=== PATIENT | female | born 1935 | race Caucasian/White ===

== ENCOUNTER 2016-08-06 18:32 | Emergency (ER) | payer MEDICARE, BC ==
[2016-08-06 18:42] VITALS: BP 167/77
[2016-08-06] MEDS ORDERED: Sodium Chloride 0.9% 10 ML Syringe FLUSH PRN ×2 (19:57→19:59)
[2016-08-06] MEDS ORDERED: Iopamidol 612 MG/ML 150 ML Bottle IVPUSH ONE (19:59)
--- NOTE | 2016-08-06 20:06 | EDM.PDOC ---
ED HPI GENERAL MEDICAL PROBLEM - General Chief Complaint: Gastrointestinal Problem Stated Complaint: CONSTIPATION Time Seen by Provider: 08/06/16 19:35 Source of Information: Reports: Patient History Limitations: Reports: No Limitations - History of Present Illness INITIAL COMMENTS - FREE TEXT/NARRATIVE: Patient is an 81-year-old female who presents to the ED complaining of right sided abdominal pain that radiates to her right middle back. Patient states she feels constipated. She's noted increased tenderness to palpation to these areas. She has a history of bowel obstructions with similar symptoms. She has had a poor appetite. Last BM was 2 days ago described as being semi-hard with no blood present. She has been passing gas and notes abdomen is gurgling. Pain has been an ongoing issue the past month. She was prescribed hydrocodone and has been taking intermittently with some relief. patient is concerned that there is something going on within her colon due to the history of colon cancer requiring bowel resection approximately 5 years ago. patient denies any fever/ chills, night sweats, chest pain, shortness of breath, nausea/vomiting, painful urination, excessive weight loss, or any additional complaints. Past medical history:colon cancer, arthritis, chronic back pain Past surgical history: Appendectomy, colostomy, bowel resection, abdominal hernia repair, hysterectomy current medications hydrocodone Onset: Unknown/Unsure (2 days ago approximately) Duration: Constant, Waxing/Waning Location: Reports: Abdomen (right upper lobe) Quality: Reports: Ache, Sharp, Stabbing, Other (crampy) Severity: Moderate Improves with: Reports: None Worsens with: Reports: Other (palpation) Associated Symptoms: Reports: Loss of Appetite. Denies: Chest Pain, Nausea/ Vomiting, Shortness of Breath Treatments [employer]: Reports: Other (see below) (see history of present illness) Right Abdominal Pain Score (Numeric/FACES): 8 - Related Data Allergies Allergy/AdvReac Type Severity Reaction Status Date / Time aspirin Allergy Rash Verified 08/06/16 18:42 codeine Allergy Cannot Verified 08/06/16 18:42 Remember monosodium glutamate Allergy Rash Verified 08/06/16 18:42 penicillin V Allergy Rash Verified 08/06/16 18:42 morphine AdvReac Hypotension Verified 08/06/16 18:42 sulfacetamide AdvReac Nausea Verified 08/06/16 18:42 Home Meds: Home Meds Hydrocodone/Acetaminophen [Hydrocodon-Acetaminophen 5-325] 1 tab PO Q4HR PRN [History] Nitrofurantoin Monohyd/M-Cryst [Macrobid 100 mg Capsule] 100 mg PO BID #10 capsule 08/06/16 [Rx] Past Medical History Musculoskeletal History: Reports: Arthritis, Back Pain, Chronic - Past Surgical History GI Surgical History: Reports: Appendectomy, Colonoscopy, Colostomy, Hernia, Abdominal Female Surgical History: Reports: Hysterectomy Social & Family History - Family History Family Medical History: Noncontributory - Tobacco Use Smoking Status *Q: Never Smoker - Caffeine Use Caffeine Use: Reports: None - Recreational Drug Use Recreational Drug Use: No - Living Situation & Occupation Living situation: Reports: Occupation: Retired ED ROS GENERAL - Review of Systems Review Of Systems: See Below Constitutional: Reports: Decreased Appetite. Denies: Fever, Chills Respiratory: Reports: No Symptoms Cardiovascular: Reports: No Symptoms GI/Abdominal: Reports: Abdominal Pain, Constipation, Decreased Appetite, Distension, Flatus. Denies: Black Stool, Bloody Stool, Diarrhea, Hematemesis, Melena, Nausea, Vomiting : Reports: No Symptoms Musculoskeletal: Reports: Back Pain (low back bilaterally) Skin: Reports: No Symptoms Neurological: Denies: Dizziness ED EXAM, GI/ABD - Physical Exam Exam: See Below Exam Limited By: No Limitations General Appearance: Alert, WD/WN, No Apparent Distress Ears: Hearing Grossly Normal Nose: Normal Inspection Throat/Mouth: Normal Voice, No Airway Compromise Neck: Normal Inspection, Supple Respiratory/Chest: No Respiratory Distress, Lungs Clear, Normal Breath Sounds, No Accessory Muscle Use, Chest Non-Tender Cardiovascular: Normal Peripheral Pulses, Regular Rate, Rhythm GI/Abdominal: Normal Bowel Sounds, Soft, No Organomegaly, No Distention, Tenderness (Rightright upper and lower quadrant. Multiple scars to the abdomen from previous surgeries. She also has pain in the suprapubic region.) Back Exam: Normal Inspection. No: CVA Tenderness (L), CVA Tenderness (R) Neurological: Alert, Oriented, Normal Cognition, No Motor/Sensory Deficits Psychiatric: Normal Affect, Normal Mood Skin Exam: Warm, Dry, Intact, Normal Color Course - Vital Signs Last Recorded V/S: Last Vital Signs Temp 98.7 F 08/06/16 18:38 Pulse 89 08/06/16 18:38 Resp 18 08/06/16 18:38 BP 167/77 H 08/06/16 18:38 Pulse Ox 97 08/06/16 18:38 - Orders/Labs/Meds Orders: Active Orders 24 hr Category Date Time Status Peripheral IV Care [RC] . DIRECTED Care 08/06/16 19:57 Active Abdomen Pelvis w Cont [CT] Stat Exams 08/06/16 19:57 Taken CULTURE URINE [RM] Stat Lab 08/06/16 22:20 Received Sodium Chloride 0.9% [Normal Saline] 1,000 ml Med 08/06/16 23:15 Active IV ASDIRECTED Sodium Chloride 0.9% [Saline Flush] Med 08/06/16 19:57 Active 10 ml FLUSH ASDIRECTED PRN Sodium Chloride 0.9% [Saline Flush] Med 08/06/16 19:59 Active 10 ml FLUSH ONETIME PRN Peripheral IV Insertion Adult [OM.PC] Stat Oth 08/06/16 19:57 Ordered Medication Orders Sodium Chloride (Normal Saline) 1,000 mls @ 75 mls/hr IV ASDIRECTED DENISA Last Admin: 08/06/16 23:26 Dose: 75 mls/hr Sodium Chloride (Saline Flush) 10 ml FLUSH ASDIRECTED PRN PRN Reason: Keep Vein Open Last Admin: 08/06/16 20:14 Dose: 10 ml Sodium Chloride (Saline Flush) 10 ml FLUSH ONETIME PRN PRN Reason: IV FLUSH Last Admin: 08/06/16 21:34 Dose: 10 ml Labs: Laboratory Tests 08/06/16 08/06/16 08/06/16 Range/Units 20:10 20:10 22:20 WBC 6.17 (3.98-10.04) K/mm3 RBC 4.40 (3.98-5.22) M/mm3 Hgb 13.4 (11.2-15.7) gm/L Hct 40.4 (34.1-44.9) % MCV 91.8 (79.4-94.8) fl MCH 30.5 (25.6-32.2) pg MCHC 33.2 (32.2-35.5) g/dl RDW Std Deviation 44.9 (36.4-46.3) fL Plt Count 316 (182-369) K/mm3 MPV 9.1 L (9.4-12.3) fl Neut % (Auto) 57.6 (34.0-71.1) % Lymph % (Auto) 30.6 (19.3-51.7) % Parker % (Auto) 9.2 (4.7-12.5) % Eos % (Auto) 1.8 (0.7-5.8) Baso % (Auto) 0.6 (0.1-1.2) % Neut # (Auto) 3.55 (1.56-6.13) K/mm3 Lymph # (Auto) 1.89 (1.18-3.74) K/mm3 Parker # (Auto) 0.57 H (0.24-0.36) K/mm3 Eos # (Auto) 0.11 (0.04-0.36) K/mm3 Baso # (Auto) 0.04 (0.01-0.08) K/mm3 Sodium 139 (136-145) mEq/L Potassium 4.2 (3.5-5.1) mEq/L Chloride 103 (98-107) mEq/L Carbon Dioxide 27 (21-32) mEq/L Anion Gap 13.2 (5-15) BUN 11 (7-18) mg/dL Creatinine 0.7 (0.55-1.02) mg/dL Est Cr Clr Drug Dosing 52.58 mL/min Estimated GFR (MDRD) > 60 (>60) mL/min BUN/Creatinine Ratio 15.7 (14-18) Glucose 118 H (83-115) mg/dL Calcium 9.7 (8.5-10.1) mg/dL Total Bilirubin 0.8 (0.2-1.0) mg/dL AST 29 (15-37) U/L ALT 31 (14-59) U/L Alkaline Phosphatase 145 H (46-116) U/L C-Reactive Protein 1.7 H* (<1.0) mg/dL Total Protein 7.6 (6.4-8.2) g/dl Albumin 3.9 (3.4-5.0) g/dl Globulin 3.7 gm/dL Albumin/Globulin Ratio 1.1 (1-2) Lipase 116 (73-393) U/L Urine Color Light yellow (Yellow) Urine Appearance Clear (Clear) Urine pH 7.0 (5.0-8.0) Ur Specific Bayard 1.015 (1.005-1.030) Urine Protein Negative (Negative) Urine Glucose (UA) Negative (Negative) Urine Ketones Negative (Negative) Urine Occult Blood Trace-intact H (Negative) Urine Nitrite Negative (Negative) Urine Bilirubin Negative (Negative) Urine Urobilinogen 0.2 (0.2-1.0) Ur Leukocyte Esterase 1+ H (Negative) Urine RBC 5-10 H (0-5) /hpf Urine WBC 20-30 H (0-5) /hpf Urine WBC Clumps Few (NOT SEEN) /hpf Ur Epithelial Cells Not Reportable Ur Squamous Epith Cells 5-10 H (0-5) /hpf Urine Bacteria Few (FEW) /hpf Urine Mucus Not seen (FEW) /hpf Meds: Medications Generic Name Dose Route Start Last Admin Trade Name Freq PRN Reason Stop Dose Admin Sodium Chloride 1,000 mls @ 75 mls/hr 08/06/16 23:15 08/06/16 23:26 Normal Saline IV 75 mls/hr ASDIRECTED DENISA Administration Sodium Chloride 10 ml 08/06/16 19:57 08/06/16 20:14 Saline Flush FLUSH 10 ml ASDIRECTED PRN Administration Keep Vein Open Sodium Chloride 10 ml 08/06/16 19:59 08/06/16 21:34 Saline Flush FLUSH 10 ml ONETIME PRN Administration IV FLUSH Discontinued Medications Generic Name Dose Route Start Last Admin Trade Name Christian PRN Reason Stop Dose Admin Hydromorphone HCl 0.5 mg 08/06/16 22:41 08/06/16 22:48 Dilaudid IVPUSH 08/06/16 22:42 0.5 mg ONETIME ONE Administration Iopamidol 150 ml 08/06/16 19:59 08/06/16 21:33 Isovue-300 (61%) IVPUSH 08/06/16 20:00 80 ml ONETIME ONE Administration Nitrofurantoin Macrocrystals 100 mg 08/06/16 23:02 08/06/16 23:18 Macrobid PO 08/06/16 23:03 100 mg ONETIME ONE Administration - Re-Assessments/Exams Free Text/Narrative Re-Assessment/Exam: 08/06/16 19:59 Patient has a history of 5 abdominal surgeries with colon resection. Complains of right sided abdominal discomfort with increased distention and no bowel movement for 2 days. She's concerned that she may have an obstruction present. The resection of the colon was secondary to cancer. We' ll obtain a peripheral IV with normal saline 75 mL per hour. Initial labs and studies include: CBC, C14, CRP, Lipase, UA, CT abdomen/pelvis with oral and IV contrast. Labs reviewed: CBC and chem 14 were essentially normal. ALK was elevated at 145 , CRP 1.7, and lipase 116. UA did reveal occult blood trace, leukocyte esterase 1+, rbc's 5-10, WBCs 20-30, squamous epithelial cells 5-10. Urine culture was obtained. Order Macrobid [address] of the abdomen and pelvis impression: 7 cm soft tissue mass involving the anterior aspect of the right iliac wing extending from the anterior superior iliac spine down to just above the acetabulum. There is bony destruction. This could be in metastasis disease or a primary bone lesion. 2 cm enhancing left renal mass suspicious for renal cell carcinoma. Stable and unchanged appearance to an umbilical hernia. Should results of labs and CT study with patient. She is in excruciating amount of pain. Pain is located to low back. Ordered Dilaudid 0.5 mg IVP. She requested transfer to [facility]. 08/06/16 23:[address] Sánchez, does not believe patient requires admission to the hospital for workup of lesions found on CT. Suggests patient see PCP this coming Tuesday to schedule appt with IR for biopsy. 08/06/16 23:21 Reassessment, pain has improved. She agrees with plan. Will discharge patient home with instructions. 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 Pain you're currently experiencing is most likely associated with the bone cancer. We'll have you see your primary care provider on Tuesday to schedule an appointment with interventional radiology 2 obtain biopsy of the masses. We'll have the PCP arrange appointment with oncologist for further evaluation and determine treatment course. Continue taking hydrocodone as prescribed. Thus beware this medication can cause constipation and suggest increasing your water intake, fiber intake, and also starting MiraLax one capful every day. In addition UA results were concerning for infection. Urine culture was obtained. Will start you on Macrobid 100 mg twice a day for 5 days. If antibiotic changes are required you will be notified. Return back to the ED for any new or worsening symptoms. - My Orders Last 24 Hours: My Active Orders 08/06/16 19:57 Peripheral IV Care [RC] . DIRECTED Abdomen Pelvis w Cont [CT] Stat Sodium Chloride 0.9% [Saline Flush] 10 ml FLUSH ASDIRECTED PRN Peripheral IV Insertion Adult [OM.PC] Stat 08/06/16 19:59 Sodium Chloride 0.9% [Saline Flush] 10 ml FLUSH ONETIME PRN 08/06/16 22:20 CULTURE URINE [RM] Stat 08/06/16 23:15 Sodium Chloride 0.9% [Normal Saline] 1,000 ml IV ASDIRECTED - Assessment/Plan Last 24 Hours: My Active Orders 08/06/16 19:57 Peripheral IV Care [RC] . DIRECTED Abdomen Pelvis w Cont [CT] Stat Sodium Chloride 0.9% [Saline Flush] 10 ml FLUSH ASDIRECTED PRN Peripheral IV Insertion Adult [OM.PC] Stat 08/06/16 19:59 Sodium Chloride 0.9% [Saline Flush] 10 ml FLUSH ONETIME PRN 08/06/16 22:20 CULTURE URINE [RM] Stat 08/06/16 23:15 Sodium Chloride 0.9% [Normal Saline] 1,000 ml IV ASDIRECTED
[2016-08-06] MEDS ORDERED: Diatrizoate Meglumine/Diatrizoate Sodium 37% 120 ML Bottle PO ONE (21:34)
[2016-08-06] MEDS ORDERED: HYDROmorphone 0.5 MG/0.5 ML Syringe IVPUSH ONE (22:41)
[2016-08-06] MEDS ORDERED: Nitrofurantoin Monohydrate/Macrocrystalline 100 MG Cap PO ONE (23:02)
[2016-08-06] MEDS ORDERED: Sodium Chloride 0.9% 1,000 ML IV SCH (23:15)
--- NOTE | 2016-08-07 12:56 | CT ---
CT abdomen and pelvis Technique: Multiple axial sections were obtained from above the dome of the diaphragm inferiorly through the pubic symphysis. Delayed images were also obtained through the pelvis. Comparison: Previous abdominal and pelvic exam dated 10/15/14. Findings: Visualized lung bases show mild scarring. Liver shows no focal parenchymal abnormality. Moderately large hiatal hernia is seen. Spleen appears within normal limits. Adrenal glands show no nodule. Gallbladder shows no calcified gallstones. Small enhancing renal mass is noted on the left side in area of previous resected tumor compatible with recurrence. This measures about 1.9 cm and is a significant interval change from prior CT exam. Cyst is noted within the left kidney which appears to be stable from previous exam and currently measures about 1.5 cm. Kidneys are otherwise unremarkable. Pancreas is within normal limits. Aorta shows atherosclerotic change without aneurysmal dilatation. No retroperitoneal adenopathy is seen. Anterior abdominal wall hernia is noted containing nondilated loops of small bowel which is a stable finding. Destructive lesion is identified within the anterior right iliac wing showing bony destruction and enhancement. This abnormality measures approximately 7.2 cm in greatest dimension which is craniocaudal. This finding is not identified on prior CT exam and is felt compatible with metastatic lesion likely from patient's previous renal cell carcinoma. No additional bony metastatic lesions are seen. Mild scoliosis and degenerative change is seen within the spine. Impression: 1. 7.2 cm lytic lesion within the anterior right iliac wing with surrounding soft tissue extension. This lytic lesion shows enhancement. This is not seen on prior CT exam and is compatible with metastatic lesion likely from patient's previous renal cell carcinoma. 2. 1.9 cm enhancing mass within the left kidney. This is in the area of previous tumor resection and is felt compatible with recurrence. 3. Other findings as noted above which are stable. Diagnostic code #9 I agree with preliminary report issued by [employer] ([facility] report finalized on 08/06/16, 11:14 PM Central Time)
== END 2016-08-06 23:59 | disposition home or self-care (01) ==
LOC: JD.ED 18:32
DX: N39.0 Urinary tract infection, site not specified (principal); N28.89 Other specified disorders of kidney and ureter; C41.4 Malignant neoplasm of pelvic bones, sacrum and coccyx; Z90.49 Acquired absence of other specified parts of digestive tract; Z98.890 Other specified postprocedural states; Z90.710 Acquired absence of both cervix and uterus; Z88.0 Allergy status to penicillin; Z88.2 Allergy status to sulfonamides; Z88.5 Allergy status to narcotic agent; Z88.8 Allergy status to other drugs, medicaments and biological substances
CPT/HCPCS: 36415; 74177; 80053; 81001; 83690; 85025; 86140; 87086; 96374; 99284; A9270; J1170; J7040; J7050; Q9967; Q9963

== ENCOUNTER 2016-08-30 23:07 | Emergency (ER) | payer MEDICARE, BC ==
[2016-08-30 23:18] VITALS: BP 168/75
[2016-08-31] MEDS ORDERED: HYDROmorphone 1 MG/ML Syringe IVPUSH ONE ×2 (00:03→02:33)
[2016-08-31] MEDS ORDERED: Ondansetron 4 MG/2 ML SDV IVPUSH ONE ×2 (00:03→02:53)
[2016-08-31] MEDS ORDERED: Sodium Chloride 0.9% 1,000 ML IV SCH (00:15)
--- NOTE | 2016-08-31 02:15 | EDM.PDOC ---
ED HPI GENERAL MEDICAL PROBLEM - General Chief Complaint: Abdominal Pain Stated Complaint: SHORTNESS OF BREATH/PAIN IN BACK/SWELLING Time Seen by Provider: 08/30/16 23:46 Source of Information: Reports: Patient, Family (), Old Records, RN Notes Reviewed History Limitations: Reports: No Limitations - History of Present Illness INITIAL COMMENTS - FREE TEXT/NARRATIVE: Medical records indicate that the patient was seen in this ED 08/06/2016 for what she thought was constipation. 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 The patient subsequently underwent a left kidney biopsy and right hip biopsy at [facility] around 13:00 today. She was discharged home around 16:30, already at that time complaining of pain to her left flank and right hip. She states that the pain became significantly worse around 22:00 tonight. She states that the pain in her left flank is worse than the pain in her right hip. She believes that her abdomen is swelling. She had some nausea and emesis here in the ED. The patient was previously prescribed Youngwood, but took only one tablet around 22: 00 tonight. The patient's PCP is Dr. Randolph Abdomen Pain Score (Numeric/FACES): 10 - Related Data Allergies Allergy/AdvReac Type Severity Reaction Status Date / Time aspirin Allergy Rash Verified 08/06/16 18:42 codeine Allergy Cannot Verified 08/06/16 18:42 Remember monosodium glutamate Allergy Rash Verified 08/06/16 18:42 penicillin V Allergy Rash Verified 08/06/16 18:42 morphine AdvReac Hypotension Verified 08/06/16 18:42 sulfacetamide AdvReac Nausea Verified 08/06/16 18:42 Home Meds: Home Meds Hydrocodone/Acetaminophen [Hydrocodon-Acetaminophen 5-325] 1 tab PO Q4HR PRN [History] Past Medical History Musculoskeletal History: Reports: Arthritis, Back Pain, Chronic Oncologic (Cancer) History: Reports: Colon - Past Surgical History GI Surgical History: Reports: Appendectomy (with complications), Colon ( Hemicolectomy) Female Surgical History: Reports: Section (x 1), Hysterectomy, Salpingo-Oophorectomy Social & Family History - Family History Family Medical History: Noncontributory - Tobacco Use Smoking Status *Q: Former Smoker Years of Tobacco use: 21 Packs/Tins Daily: 3 Month Tobacco Last Used: Quit 1969 - Caffeine Use Caffeine Use: Reports: None - Alcohol Use Alcohol Use History: No - Recreational Drug Use Recreational Drug Use: No - Living Situation & Occupation Living situation: Reports: , with Spouse Occupation: Retired ED ROS GENERAL - Review of Systems Review Of Systems: See Below Constitutional: Reports: No Symptoms HEENT: Reports: No Symptoms Respiratory: Reports: No Symptoms Cardiovascular: Reports: No Symptoms Endocrine: Reports: No Symptoms GI/Abdominal: Reports: No Symptoms : Reports: No Symptoms Musculoskeletal: Reports: Back Pain (chronic) Skin: Reports: No Symptoms Neurological: Reports: No Symptoms Psychiatric: Reports: No Symptoms Hematologic/Lymphatic: Reports: No Symptoms Immunologic: Reports: No Symptoms ED EXAM, GENERAL - Physical Exam Exam: See Below Exam Limited By: No Limitations General Appearance: Alert, WD/WN, No Apparent Distress Eye Exam: Bilateral Eye: Normal Inspection Ears: Normal External Exam, Hearing Grossly Normal Nose: Normal Inspection, No Blood Throat/Mouth: Normal Inspection, Normal Lips, Normal Voice, No Airway Compromise Head: Atraumatic, Normocephalic Neck: Normal Inspection, Full Range of Motion Respiratory/Chest: No Respiratory Distress, Lungs Clear, Normal Breath Sounds, No Accessory Muscle Use Cardiovascular: Normal Peripheral Pulses, Regular Rate, Rhythm, No Gallop, No JVD, No Murmur, No Rub Peripheral Pulses: 4+: Radial (L), Radial (R) GI/Abdominal: Normal Bowel Sounds, Soft, Non-Tender, No Organomegaly, No Distention, No Abnormal Bruit, No Mass, Hernia (Umbilical) (Female) Exam: Deferred Rectal (Female) Exam: Deferred Back Exam: Normal Inspection, Full Range of Motion, Other (Puncture wound to the left flank, covered by dressing, noted. No significant associated swelling, erythema, or ecchymosis.) Extremities: Normal Inspection, Normal Range of Motion, No Pedal Edema, Normal Capillary Refill, Other (Puncture wound to the right groin, covered by dressing , noted. No associated swelling, erythema, or ecchymosis.) Neurological: Alert, Oriented, Normal Cognition, No Motor/Sensory Deficits Psychiatric: Normal Affect Skin Exam: Warm, Dry, Intact, Normal Color, No Rash Lymphatic: No Adenopathy Course - Vital Signs Last Recorded V/S: Last Vital Signs Temp 36.3 C 08/30/16 23:14 Pulse 57 L 08/30/16 23:14 Resp 14 08/30/16 23:14 BP 168/75 H 08/30/16 23:14 Pulse Ox 98 08/30/16 23:14 - Orders/Labs/Meds Orders: Active Orders 24 hr Category Date Time Status Abdomen Pelvis w Cont [CT] Stat Exams 08/31/16 00:02 Taken Sodium Chloride 0.9% [Normal Saline] 1,000 ml Med 08/31/16 00:15 Active IV ASDIRECTED Medication Orders Sodium Chloride (Normal Saline) 1,000 mls @ 150 mls/hr IV ASDIRECTED DENISA Last Admin: 08/31/16 00:16 Dose: 150 mls/hr Labs: Laboratory Tests 08/30/16 08/30/16 08/31/16 Range/Units 23:25 23:25 00:05 WBC 7.20 (3.98-10.04) K/mm3 RBC 4.40 (3.98-5.22) M/mm3 Hgb 13.3 (11.2-15.7) gm/L Hct 39.9 (34.1-44.9) % MCV 90.7 (79.4-94.8) fl MCH 30.2 (25.6-32.2) pg MCHC 33.3 (32.2-35.5) g/dl RDW Std Deviation 43.3 (36.4-46.3) fL Plt Count 229 (182-369) K/mm3 MPV 9.5 (9.4-12.3) fl Neutrophils % (Manual) 63 H (40-60) % Band Neutrophils % 0 (0-10) % Lymphocytes % (Manual) 20 (20-40) % Atypical Lymphs % 3 % Monocytes % (Manual) 11 H (2-10) % Eosinophils % (Manual) 2 (0.7-5.8) % Basophils % (Manual) 1 (0.1-1.2) Platelet Estimate Adequate Plt Morphology Comment Normal RBC Morph Comment Normal Sodium 137 (136-145) mEq/L Potassium 3.9 (3.5-5.1) mEq/L Chloride 103 (98-107) mEq/L Carbon Dioxide 25 (21-32) mEq/L Anion Gap 12.9 (5-15) BUN 13 (7-18) mg/dL Creatinine 0.9 (0.55-1.02) mg/dL Est Cr Clr Drug Dosing 40.90 mL/min Estimated GFR (MDRD) 60 (>60) mL/min BUN/Creatinine Ratio 14.4 (14-18) Glucose 176 H (83-115) mg/dL Calcium 9.4 (8.5-10.1) mg/dL Total Bilirubin 0.9 (0.2-1.0) mg/dL AST 22 (15-37) U/L ALT 27 (14-59) U/L Alkaline Phosphatase 123 H (46-116) U/L Total Protein 7.3 (6.4-8.2) g/dl Albumin 3.7 (3.4-5.0) g/dl Globulin 3.6 gm/dL Albumin/Globulin Ratio 1.0 (1-2) Urine Color Yellow (Yellow) Urine Appearance Clear (Clear) Urine pH 7.0 (5.0-8.0) Ur Specific [place] 1.020 (1.005-1.030) Urine Protein Trace H (Negative) Urine Glucose (UA) Negative (Negative) Urine Ketones 1+ H (Negative) Urine Occult Blood 3+ H (Negative) Urine Nitrite Negative (Negative) Urine Bilirubin Negative (Negative) Urine Urobilinogen 1.0 (0.2-1.0) Ur Leukocyte Esterase Negative (Negative) Urine RBC 50-75 H (0-5) /hpf Urine WBC 0-5 (0-5) /hpf Ur Epithelial Cells Not seen (0-5) /hpf Urine Bacteria Few (FEW) /hpf Coarse Granular Casts 0-5 (0-5) /hpf Urine Mucus Not seen (FEW) /hpf Meds: Medications Generic Name Dose Route Start Last Admin Trade Name Freq PRN Reason Stop Dose Admin Sodium Chloride 1,000 mls @ 150 mls/hr 08/31/16 00:15 08/31/16 00:16 Normal Saline IV 150 mls/hr ASDIRECTED DENISA Administration Discontinued Medications Generic Name Dose Route Start Last Admin Trade Name Freq PRN Reason Stop Dose Admin Hydromorphone HCl 1 mg 08/31/16 00:03 08/31/16 00:17 Dilaudid IVPUSH 08/31/16 00:04 1 mg ONETIME ONE Administration Ondansetron HCl 4 mg 06/27/17 00:03 08/31/16 00:16 Zofran IVPUSH 08/31/16 00:04 4 mg ONETIME ONE Administration - Radiology Interpretation Free Text/Narrative:: CT of the abdomen and pelvis with oral and IV contrast is read by [facility] as: 1. Known bony destructive lesion involving the right iliac wing. 2. Known left renal mass. 3. Mild left-sided hydronephrosis and hydroureter. Small amount of high density in the distal aspect of the left ureter could represent a small amount of blood in the ureter which is resulting in the hydronephrosis. 4. Umbilical hernia 5. Hiatal hernia - Re-Assessments/Exams Free Text/Narrative Re-Assessment/Exam: 08/31/16 02:33 Test results discussed with the patient. Christian's workup shows modestly elevated blood glucose of 176, and the CT scan demonstrating recurrence of a left kidney tumor and what appears to be a metastatic lesion to the right hip. I 'm recommending to the patient that she take her previously prescribed Youngwood on a regular basis, and not wait until her pain is unmanageable. I do not see an indication for hospitalization. I'm recommending that she follow-up with Dr. Randolph tomorrow. Departure - Departure Time of Disposition: 02:34 Disposition: Home, Self-Care 01 Condition: Fair Clinical Impression: Left flank pain, Right hip pain, Hyperglycemia - Discharge Information Referrals: Yaw Randolph MD [Primary Care Provider] - Forms: ED Department Discharge Additional Instructions: You were seen in the emergency room for left flank pain and right hip pain after undergoing biopsies to those areas earlier today. Workup in the ER included blood work, a urinalysis, and a CT scan of your abdomen and pelvis. Your blood work found your blood glucose to be modestly elevated at 176. The CT scan of your abdomen and pelvis found some swelling of your left kidney due to post biopsy bleeding. The CT scan redemonstrated a left kidney tumor and a right hip tumor. 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 Please take your previously prescribed Youngwood (hydrocodone with acetaminophen) 1- 2 tablets every 4-6 hours, on a regular basis. Do not wait until your pain becomes unbearable before taking the medicine. Please follow-up with Dr. Agustín in the morning, to address your elevated blood sugar as well as your pain management. If any other problems, please do not hesitate to return to the ER. - My Orders Last 24 Hours: My Active Orders 08/31/16 00:02 Abdomen Pelvis w Cont [CT] Stat 08/31/16 00:15 Sodium Chloride 0.9% [Normal Saline] 1,000 ml IV ASDIRECTED - Assessment/Plan Last 24 Hours: My Active Orders 08/31/16 00:02 Abdomen Pelvis w Cont [CT] Stat 08/31/16 00:15 Sodium Chloride 0.9% [Normal Saline] 1,000 ml IV ASDIRECTED
--- NOTE | 2016-08-31 07:17 | CT ---
CT abdomen and pelvis Technique: Multiple axial sections were obtained from above the dome of the diaphragm inferiorly through the pubic symphysis. Intravenous and oral contrast was utilized. Delayed images were also obtained through the abdomen and pelvis. Comparison: Previous CT abdomen and pelvis exam of 08/06/16. Findings: Visualized lung bases show mild fibrosis. Liver shows no focal abnormality. Gallbladder shows no calcified gallstones. Spleen appears within normal limits. Adrenal glands show no nodule. Moderately large hiatal hernia is seen. Aorta shows atherosclerotic change without aneurysm. Abdominal wall hernia is seen containing loops of nondilated small bowel. Hernia defect measures approximately 5 cm. No pelvic mass or adenopathy is seen. Anastomotic sutures appear to be present at the rectosigmoid junction. Left renal mass is identified. This measures about 2.1 cm in size is felt to be stable when allowing for differences in measurement technique. There is an enhancing nodule within the left renal pelvis. This appears to be within the collecting system and possibly represents small amount of tumor that is invading the renal pelvis. This enhancing nodule measures 9 mm. This appears to be without change from prior study but better seen due to differences in enhancement. There is a mildly prominent left ureter which is an interval change from prior exam. Minimal increased density is noted within the distal left ureter possibly due to blood causing some obstruction as an etiology of the mild ureteral prominence. No right sided kidney abnormalities are seen. Bone window settings show a stable metastatic lesion within the right iliac wing which currently measures about 5.3 cm in size (in AP projection). This measures about 5.1 cm in size (in AP projection) in similar measurement plane on prior study. Craniocaudal measurement is approximately 7.3 cm which is fairly stable when compared to prior exam. Scattered degenerative change is seen within the spine. Impression: 1. Left renal mass stable in size measuring about 2.1 cm. Enhancing soft tissue nodule is seen within the adjacent collecting system of the left kidney possibly due to invasion of the collecting system. This enhancing nodule measures about 9 mm and is felt to be stable from prior exam. 2. Mild left-sided hydronephrosis as an interval change from prior exam. Slight increased density within the distal left ureter. This increased density may represent a small amount of blood from recent biopsy causing mild hydronephrosis. 3. 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 This has minimally changed in configuration from prior exam. 4. Hiatal hernia and abdominal hernia. Diagnostic code #9 Agree with preliminary report issued by [facility] ([facility] report dictated on 08/31/16, 3:13 AM Central Time)
== END 2016-08-31 03:25 | disposition home or self-care (01) ==
LOC: JD.ED 23:07
DX: R10.9 Unspecified abdominal pain (principal); M25.551 Pain in right hip; R73.9 Hyperglycemia, unspecified; Z79.82 Long term (current) use of aspirin; Z88.5 Allergy status to narcotic agent; Z88.0 Allergy status to penicillin; Z88.2 Allergy status to sulfonamides; Z90.49 Acquired absence of other specified parts of digestive tract; Z90.710 Acquired absence of both cervix and uterus; Z87.891 Personal history of nicotine dependence
CPT/HCPCS: 36415; 74177; 80053; 81001; 85025; 96361; 96374; 96375; 96376; 99284; J1170; J2405; J7040

== ENCOUNTER 2017-09-18 00:51 | Inpatient (IN) | payer MEDICARE, BC ==
--- NOTE | 2017-09-18 01:14 | EDM.PDOC ---
ED HPI GENERAL MEDICAL PROBLEM - General Chief Complaint: Head Injury Stated Complaint: [facility] Time Seen by Provider: 09/18/17 00:58 Source of Information: Reports: Patient History Limitations: Reports: No Limitations - History of Present Illness INITIAL COMMENTS - FREE TEXT/NARRATIVE: This is an 82-year-old female brought in by the ambulance. Apparently she fell 2 today though the patient herself does not remember. She has a laceration to the bridge of her nose but she is coherent and talking though she does remember today's events very well. Apparently she has a history of bone cancer in the past. She does complain of coccyx tenderness and some mild right anterior pelvis tenderness. She also has some bruising and abrasions of the right ribs however she does not complain of rib tenderness. Her significant other though it is not her states that she fell out of bed twice today. She also has not been eating or drinking anything much over the last week. Apparently she has been expressing to Silvio that she wants to . She does have bone cancer in her right pelvis and right hip. According to Silvio the cancer doctor stated there was nothing more they could do for her. The patient is a DNR/DNI. Nose Pain Score (Numeric/FACES): 8 - Related Data Allergies Allergy/AdvReac Type Severity Reaction Status Date / Time aspirin Allergy Rash Verified 08/06/16 18:42 codeine Allergy Cannot Verified 08/06/16 18:42 Remember monosodium glutamate Allergy Rash Verified 08/06/16 18:42 penicillin V Allergy Rash Verified 08/06/16 18:42 morphine AdvReac Hypotension Verified 08/06/16 18:42 sulfacetamide AdvReac Nausea Verified 08/06/16 18:42 Home Meds: Home Meds . [No Known Home Meds] 09/18/17 [History] Past Medical History Musculoskeletal History: Reports: Arthritis, Back Pain, Chronic Oncologic (Cancer) History: Reports: Colon - Past Surgical History GI Surgical History: Reports: Appendectomy (with complications), Colon ( Hemicolectomy) Female Surgical History: Reports: Section (x 1), Hysterectomy, Salpingo-Oophorectomy Social & Family History - Family History Family Medical History: Noncontributory - Caffeine Use Caffeine Use: Reports: None - Living Situation & Occupation Living situation: Reports: , with Spouse Occupation: Retired ED ROS GENERAL - Review of Systems Review Of Systems: See Below Constitutional: Reports: Weakness, Fatigue. Denies: Fever, Chills HEENT: Reports: Other (As per history of present illness) Respiratory: Denies: Shortness of Breath, Cough Cardiovascular: Denies: Chest Pain Endocrine: Reports: No Symptoms GI/Abdominal: Denies: Abdominal Pain, Diarrhea, Nausea, Vomiting : Denies: Dysuria Musculoskeletal: Reports: Other (As per history of present illness) Skin: Reports: Other (As per history of present illness) Neurological: Reports: Other (Poor memory but she seems to be alert) Psychiatric: Reports: Depression Hematologic/Lymphatic: Reports: No Symptoms ED EXAM, HEAD INJURY - Physical Exam Exam: See Below Exam Limited By: No Limitations General Appearance: Alert, No Apparent Distress, Thin Head: Other (Patient has a bruise on her forehead and a laceration on the bridge of the nose that is prima closed, she appears to developing some mild bruising around the bridge of the nose, she denies any jaw or tooth pain) Eyes: Bilateral Eye: Normal Inspection Ears: Normal External Exam, Normal Canal, Normal TMs Nose: Normal Inspection Throat/Mouth: No Airway Compromise, Other (Lips are pale, mouth is dry, she is able to verbalize) Neck: Other (She has generalized soreness of her neck though she is moving it and rotating it side to side) Respiratory: No Respiratory Distress, Lungs Clear, Normal Breath Sounds, Other ( Right ribs are sore and bruised but there is no crepitus there is no marked pain on palpation of either side ribs) Cardiovascular: Regular Rate, Rhythm, No Murmur GI/Abdominal Exam: Soft, Non-Tender Back Exam: Decreased Range of Motion, Other (There is no significant thoracic or lumbar tenderness other than the very lower lumbar area, the sacrum has a bruise noted in the upper buttocks region) Extremities: Other (Patient is rather cachectic, she moves all 4 extremities without difficulty she does complain of a stinging pain in her right pelvis area and hip) Neurologic: Alert, Other (The patient recognizes Silvio and I believe she understands she is in the hospital but she is not oriented to time) Skin: Other (Poor skin turgor) - Shea Coma Score Best Eye Response ([place]): (4) Open Spontaneously Best Verbal Response (Shea): (5) Oriented Best Motor Response (Shea): (6) Obeys Commands Shea Total: 15 Course - Vital Signs Last Recorded V/S: Last Vital Signs Temp 98.5 F 09/18/17 00:59 Pulse 76 09/18/17 00:59 Resp 18 09/18/17 00:59 BP 167/55 H 09/18/17 00:59 Pulse Ox 98 09/18/17 00:59 - Orders/Labs/Meds Orders: Active Orders 24 hr Category Date Time Status Admission Status [Patient Status] [ADT] Routine ADT 09/18/17 03:38 Active Cervical Spine wo Cont [CT] Stat Exams 09/18/17 01:03 Ordered Head wo Cont [CT] Stat Exams 09/18/17 01:03 Ordered Lumbar Spine 2 or 3V [CR] Stat Exams 09/18/17 01:04 Taken Max Facial Sinus wo Cont [CT] Stat Exams 09/18/17 01:05 Taken Pelvis 1V or 2V [CR] Stat Exams 09/18/17 01:07 Taken Sacrum Coccyx Min 2V [CR] Stat Exams 09/18/17 01:04 Taken Sodium Chloride 0.9% [Normal Saline] 1,000 ml Med 09/18/17 01:15 Active IV ASDIRECTED Medication Orders Sodium Chloride (Normal Saline) 1,000 mls @ 250 mls/hr IV ASDIRECTED DENISA Last Admin: 09/18/17 01:23 Dose: 250 mls/hr Labs: Laboratory Tests 09/18/17 09/18/17 09/18/17 Range/Units 01:19 01:19 01:19 WBC 5.08 (3.98-10.04) K/mm3 RBC 3.23 L (3.98-5.22) M/mm3 Hgb 10.1 L (11.2-15.7) gm/L Hct 31.2 L (34.1-44.9) % MCV 96.6 H (79.4-94.8) fl MCH 31.3 (25.6-32.2) pg MCHC 32.4 (32.2-35.5) g/dl RDW Std Deviation 48.7 H (36.4-46.3) fL Plt Count 344 (182-369) K/mm3 MPV 8.6 L (9.4-12.3) fl Neut % (Auto) 76.8 H (34.0-71.1) % Lymph % (Auto) 11.2 L (19.3-51.7) % [place] % (Auto) 11.4 (4.7-12.5) % Eos % (Auto) 0.4 L (0.7-5.8) Baso % (Auto) 0.2 (0.1-1.2) % Neut # (Auto) 3.90 (1.56-6.13) K/mm3 Lymph # (Auto) 0.57 L (1.18-3.74) K/mm3 [place] # (Auto) 0.58 H (0.24-0.36) K/mm3 Eos # (Auto) 0.02 L (0.04-0.36) K/mm3 Baso # (Auto) 0.01 (0.01-0.08) K/mm3 Sodium 140 (136-145) mEq/L Potassium 2.7 L (3.5-5.1) mEq/L Chloride 100 (98-107) mEq/L Carbon Dioxide 33 H (21-32) mEq/L Anion Gap 9.7 (5-15) BUN 31 H (7-18) mg/dL Creatinine 1.1 H (0.55-1.02) mg/dL Est Cr Clr Drug Dosing TNP Estimated GFR (MDRD) 47 (>60) mL/min BUN/Creatinine Ratio 28.2 H (14-18) Glucose 145 H (83-115) mg/dL Calcium 16.0 H* (8.5-10.1) mg/dL Magnesium 2.1 (1.8-2.4) mg/dl Total Bilirubin 1.1 H (0.2-1.0) mg/dL AST 19 (15-37) U/L ALT 17 (14-59) U/L Alkaline Phosphatase 146 H (46-116) U/L Total Protein 7.8 (6.4-8.2) g/dl Albumin 3.3 L (3.4-5.0) g/dl Globulin 4.5 gm/dL Albumin/Globulin Ratio 0.7 L (1-2) Urine Color (Yellow) Urine Appearance (Clear) Urine pH (5.0-8.0) Ur Specific [place] (1.005-1.030) Urine Protein (Negative) Urine Glucose (UA) (Negative) Urine Ketones (Negative) Urine Occult Blood (Negative) Urine Nitrite (Negative) Urine Bilirubin (Negative) Urine Urobilinogen (0.2-1.0) Ur Leukocyte Esterase (Negative) Urine RBC (0-5) /hpf Urine WBC (0-5) /hpf Ur Epithelial Cells (0-5) /hpf Urine Bacteria (FEW) /hpf Hyaline Casts (0-5) /lpf Waxy Casts (0-5) /lpf Urine Mucus (FEW) /hpf 09/18/17 Range/Units 01:28 WBC (3.98-10.04) K/mm3 RBC (3.98-5.22) M/mm3 Hgb (11.2-15.7) gm/L Hct (34.1-44.9) % MCV (79.4-94.8) fl MCH (25.6-32.2) pg MCHC (32.2-35.5) g/dl RDW Std Deviation (36.4-46.3) fL Plt Count (182-369) K/mm3 MPV (9.4-12.3) fl Neut % (Auto) (34.0-71.1) % Lymph % (Auto) (19.3-51.7) % [place] % (Auto) (4.7-12.5) % Eos % (Auto) (0.7-5.8) Baso % (Auto) (0.1-1.2) % Neut # (Auto) (1.56-6.13) K/mm3 Lymph # (Auto) (1.18-3.74) K/mm3 [place] # (Auto) (0.24-0.36) K/mm3 Eos # (Auto) (0.04-0.36) K/mm3 Baso # (Auto) (0.01-0.08) K/mm3 Sodium (136-145) mEq/L Potassium (3.5-5.1) mEq/L Chloride (98-107) mEq/L Carbon Dioxide (21-32) mEq/L Anion Gap (5-15) BUN (7-18) mg/dL Creatinine (0.55-1.02) mg/dL Est Cr Clr Drug Dosing Estimated GFR (MDRD) (>60) mL/min BUN/Creatinine Ratio (14-18) Glucose (83-115) mg/dL Calcium (8.5-10.1) mg/dL Magnesium (1.8-2.4) mg/dl Total Bilirubin (0.2-1.0) mg/dL AST (15-37) U/L ALT (14-59) U/L Alkaline Phosphatase (46-116) U/L Total Protein (6.4-8.2) g/dl Albumin (3.4-5.0) g/dl Globulin gm/dL Albumin/Globulin Ratio (1-2) Urine Color Yellow (Yellow) Urine Appearance Clear (Clear) Urine pH 6.5 (5.0-8.0) Ur Specific [place] 1.020 (1.005-1.030) Urine Protein Trace H (Negative) Urine Glucose (UA) Negative (Negative) Urine Ketones Negative (Negative) Urine Occult Blood 2+ H (Negative) Urine Nitrite Negative (Negative) Urine Bilirubin Negative (Negative) Urine Urobilinogen 1.0 (0.2-1.0) Ur Leukocyte Esterase Negative (Negative) Urine RBC 10-20 H (0-5) /hpf Urine WBC 0-5 (0-5) /hpf Ur Epithelial Cells 0-5 (0-5) /hpf Urine Bacteria Rare (FEW) /hpf Hyaline Casts 0-5 (0-5) /lpf Waxy Casts 0-5 (0-5) /lpf Urine Mucus Not seen (FEW) /hpf Meds: Medications Generic Name Dose Route Start Last Admin Trade Name Freq PRN Reason Stop Dose Admin Sodium Chloride 1,000 mls @ 250 mls/hr 09/18/17 01:15 09/18/17 01:23 Normal Saline IV 250 mls/hr ASDIRECTED DENISA Administration Discontinued Medications Generic Name Dose Route Start Last Admin Trade Name Freq PRN Reason Stop Dose Admin Hydromorphone HCl 0.5 mg 09/18/17 02:32 09/18/17 02:38 Dilaudid IVPUSH 09/18/17 02:33 0.5 mg ONETIME ONE Administration - Radiology Interpretation Free Text/Narrative:: X-ray of the lumbar spine does not show any acute fractures, she does have an L3 compression fracture but it appears to be old X-ray of the sacrum coccyx is does not reveal any acute fractures that I can see that she does have degenerative changes noted X-ray of the pelvis shows a destructive process in the right ilium and there are some cavities in the bones suggestive of bone cancer CT scan of the cervical spine reveals some degenerative changes and arthritis but no acute fractures CT scan of the head reveals no acute intracranial process CT scan of the facial bones 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 There are no other acute findings noted - Re-Assessments/Exams Free Text/Narrative Re-Assessment/Exam: 09/18/17 03:11 Spoke to the patient and her significant other regarding the x-ray and CT scan results. I also spoke with him regarding the lab findings and the need for us to watch her and try to get the calcium down with hydration and other modalities. 09/18/17 03:42 I spoke to the patient regarding the various findings and her labs and her dehydration indicating we need to put her in the hospital to straighten this out and she is more than happy to be in the hospital. Departure - Departure Time of Disposition: 03:42 Disposition: Refer to Observation Condition: Poor Clinical Impression: Dehydration, Hypercalcemia of malignancy, Hypokalemia, Anorexia Facial laceration Qualifiers: Encounter type: initial encounter Qualified Code(s): S01.81XA - Laceration without foreign body of other part of head, initial encounter Rib contusion Qualifiers: Encounter type: initial encounter Laterality: right Qualified Code(s): S20.211A - Contusion of right front wall of thorax, initial encounter Coccyx contusion Qualifiers: Encounter type: initial encounter Qualified Code(s): S30.0XXA - Contusion of lower back and pelvis, initial encounter Bone cancer Qualifiers: Malignant neoplasm of bone location: pelvic bone Qualified Code(s): 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 Moreno and he will admit the patient for further evaluation and treatment. ED Communication - ED Communication Date/Time Date: 09/18/17 Time Called: 03:40 - Discussed Case With (1) Discussed Case With (1): Admitting Provider Person/s Notified (1): Saran Moreno (He will admit the patient for further evaluation and treatment) - My Orders Last 24 Hours: My Active Orders 09/18/17 01:03 Cervical Spine wo Cont [CT] Stat Head wo Cont [CT] Stat 09/18/17 01:04 Lumbar Spine 2 or 3V [CR] Stat Sacrum Coccyx Min 2V [CR] Stat 09/18/17 01:05 Max Facial Sinus wo Cont [CT] Stat 09/18/17 01:07 Pelvis 1V or 2V [CR] Stat 09/18/17 01:15 Sodium Chloride 0.9% [Normal Saline] 1,000 ml IV ASDIRECTED 09/18/17 03:38 Admission Status [Patient Status] [ADT] Routine - Assessment/Plan Last 24 Hours: My Active Orders 09/18/17 01:03 Cervical Spine wo Cont [CT] Stat Head wo Cont [CT] Stat 09/18/17 01:04 Lumbar Spine 2 or 3V [CR] Stat Sacrum Coccyx Min 2V [CR] Stat 09/18/17 01:05 Max Facial Sinus wo Cont [CT] Stat 09/18/17 01:07 Pelvis 1V or 2V [CR] Stat 09/18/17 01:15 Sodium Chloride 0.9% [Normal Saline] 1,000 ml IV ASDIRECTED 09/18/17 03:38 Admission Status [Patient Status] [ADT] Routine
[2017-09-18] MEDS ORDERED: Sodium Chloride 0.9% 1,000 ML IV SCH (01:15)
[2017-09-18] MEDS ORDERED: HYDROmorphone 0.5 MG/0.5 ML SYRINGE IVPUSH ONE (02:32)
[2017-09-18] MEDS: Sodium Chloride 0.9% with KCl 1,000 ML IV SCH ×5 (03:59→20:21)
[2017-09-18] MEDS ORDERED: Sodium Chloride 0.9% with KCl 1,000 ML IV SCH (04:00)
[2017-09-18] MEDS ORDERED: HYDROmorphone 2 MG Tab PO PRN (05:09)
--- NOTE | 2017-09-18 06:54 | PCM.HP ---
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 She reports a lesion on her nose bridge but could not tell me how she got it. She also reports to having butt pain and right hip tenderness but both have now improved. Patient is able to provide some pertinent information but overall she is a poor historian. However according to Silvio, erna and AIDE, she has been very weak, dehydrated, and not been eating or drinking over the past week. About that period of time, she had expressed to him about wanting to . Patient lost her for good several years now but has a son in [place], [place] who she has not seen or talk to in a very long time. She currently lives with Silvio who appears to be her volunteer helper and or partial respiratory care faculty. Her initial workup in the emergency department shows a CBC remarkable for RBC of 3.23, hemoglobin of 10.1, hematocrit of 31.2, MCH of 96.6, RDW of 40.7, MPV of 8.6, neutrophils of 76.8%, lymphocytes of 11.2% and eosinophils of 0.4%. Her chemistry is remarkable for potassium of 2.7, carbon dioxide of 33, BUN of 31, creatinine of 1.1, glucose of 145, calcium of 16, total bilirubin of 1.1, alkaline phosphatase of 146, and albumin of 3.3. Her UA is negative for UTI but suggestive of hematuria with 2+ protein and urine RBC of 11-20. Head CT scan report reads large bony destructive process involving the clivus extending into the sphenoid sinus. No evidence of acute infarct, or intracranial hemorrhage or mass. 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 No acute fracture is identified. CT scan of the cervical spine reads no acute fracture or dislocation, cervical spondylosis changes with loss of disc space height from C4-C7, bilateral facet arthropathy throughout the cervical spine. 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 She is DNR/DNI. Nose Pain Score (Numeric/FACES): 8 - Related Data Allergies/Adverse Reactions: Allergies Allergy/AdvReac Type Severity Reaction Status Date / Time aspirin Allergy Rash Verified 08/06/16 18:42 codeine Allergy Cannot Verified 08/06/16 18:42 Remember monosodium glutamate Allergy Rash Verified 08/06/16 18:42 penicillin V Allergy Rash Verified 08/06/16 18:42 morphine AdvReac Hypotension Verified 08/06/16 18:42 sulfacetamide AdvReac Nausea Verified 08/06/16 18:42 Home Medications: Home Meds . [No Known Home Meds] 09/18/17 [History] Past Medical History Musculoskeletal History: Reports: Arthritis, Back Pain, Chronic Oncologic (Cancer) History: Reports: Colon - Past Surgical History GI Surgical History: Reports: Appendectomy (with complications), Colon ( Hemicolectomy) Female Surgical History: Reports: Section (x 1), Hysterectomy, Salpingo-Oophorectomy Social & Family History - Family History Family Medical History: Noncontributory - Tobacco Use Smoking Status *Q: Never Smoker - Caffeine Use Caffeine Use: Reports: None - Living Situation & Occupation Living situation: Reports: , with Spouse Occupation: Retired H&P Review of Systems - Review of Systems: Review Of Systems: See Below General: Reports: Malaise, Weakness, Fatigue. Denies: Fever, Chills HEENT: Reports: No Symptoms Pulmonary: Reports: No Symptoms Cardiovascular: Reports: Dyspnea on Exertion. Denies: Chest Pain, Palpitations , Lightheadedness Gastrointestinal: Reports: Decreased Appetite, Nausea. Denies: Abdominal Pain, Vomiting Genitourinary: Reports: Frequency Musculoskeletal: Reports: Back Pain, Joint Pain, Other (hip pain) Skin: Reports: No Symptoms Psychiatric: Reports: Confusion, Depression. Denies: Anxiety, Agitation, Hallucinations Neurological: Reports: Difficulty Walking, Weakness, Gait Disturbance Hematologic/Lymphatic: Reports: No Symptoms Immunologic: Reports: No Symptoms Exam - Exam Exam: See Below - Vital Signs Vital Signs: Last Vital Signs Temp 37.2 C 09/18/17 04:35 Pulse 76 09/18/17 00:59 Resp 16 09/18/17 04:35 BP 127/92 H 09/18/17 04:35 Pulse Ox 98 09/18/17 00:59 Weight: 53.932 kg - Exam General: Alert, Cooperative, Other (emaciated). No: Oriented, Mild Distress HEENT: Conjunctiva Clear, EACs Clear, Hearing Intact, Nares Patent, Normal Nasal Septum, Pupils Equal, Pupils Reactive, Other (lesion/abrasion on nose bridge). No: Mucosa Moist & [place]: Supple, Trachea Midline Lungs: Clear to Auscultation, Normal Respiratory Effort Cardiovascular: Regular Rate, Regular Rhythm GI/Abdominal Exam: Normal Bowel Sounds, Soft, Non-Tender, No Organomegaly, No Distention, No Abnormal Bruit, No Mass (Female) Exam: Deferred Rectal (Female) Exam: Deferred Back Exam: Decreased Range of Motion Extremities: Normal Inspection, No Pedal Edema, Normal Capillary Refill, Limited Range of Motion Peripheral Pulses: 2+: Posterior Tibial (L), Posterior Tibial (R), Dorsalis Pedis (L), Dorsalis Pedis (R) Skin: Warm, Dry, Intact, Ecchymosis, Other (poor skin tugor) Neuro Extensive - Mental Status: Alert, Disorientation to Place, Disorientation to Time, Memory Loss-Remote Events, Slow Response to Commands. No: Normal Cognition, Memory Intact, Disorientation to Person Neuro Extensive - Motor, Sensory, Reflexes: CN II-XII Intact (very limited due to AMS), Abnormal Gait Psychiatric: Alert, Normal Affect, Normal Mood. No: Agitated - Patient Data Lab Results Last 24 hrs: Laboratory Results - last 24 hr 09/18/17 09/18/17 09/18/17 Range/Units 01:19 01:19 01:19 WBC 5.08 (3.98-10.04) K/mm3 RBC 3.23 L (3.98-5.22) M/mm3 Hgb 10.1 L (11.2-15.7) gm/L Hct 31.2 L (34.1-44.9) % MCV 96.6 H (79.4-94.8) fl MCH 31.3 (25.6-32.2) pg MCHC 32.4 (32.2-35.5) g/dl RDW Std Deviation 48.7 H (36.4-46.3) fL Plt Count 344 (182-369) K/mm3 MPV 8.6 L (9.4-12.3) fl Neut % (Auto) 76.8 H (34.0-71.1) % Lymph % (Auto) 11.2 L (19.3-51.7) % [place] % (Auto) 11.4 (4.7-12.5) % Eos % (Auto) 0.4 L (0.7-5.8) Baso % (Auto) 0.2 (0.1-1.2) % Neut # (Auto) 3.90 (1.56-6.13) K/mm3 Lymph # (Auto) 0.57 L (1.18-3.74) K/mm3 [place] # (Auto) 0.58 H (0.24-0.36) K/mm3 Eos # (Auto) 0.02 L (0.04-0.36) K/mm3 Baso # (Auto) 0.01 (0.01-0.08) K/mm3 Sodium 140 (136-145) mEq/L Potassium 2.7 L (3.5-5.1) mEq/L Chloride 100 (98-107) mEq/L Carbon Dioxide 33 H (21-32) mEq/L Anion Gap 9.7 (5-15) BUN 31 H (7-18) mg/dL Creatinine 1.1 H (0.55-1.02) mg/dL Est Cr Clr Drug Dosing TNP Estimated GFR (MDRD) 47 (>60) mL/min BUN/Creatinine Ratio 28.2 H (14-18) Glucose 145 H (83-115) mg/dL Calcium 16.0 H* (8.5-10.1) mg/dL Magnesium 2.1 (1.8-2.4) mg/dl Total Bilirubin 1.1 H (0.2-1.0) mg/dL AST 19 (15-37) U/L ALT 17 (14-59) U/L Alkaline Phosphatase 146 H (46-116) U/L Total Protein 7.8 (6.4-8.2) g/dl Albumin 3.3 L (3.4-5.0) g/dl Globulin 4.5 gm/dL Albumin/Globulin Ratio 0.7 L (1-2) Urine Color (Yellow) Urine Appearance (Clear) Urine pH (5.0-8.0) Ur Specific [place] (1.005-1.030) Urine Protein (Negative) Urine Glucose (UA) (Negative) Urine Ketones (Negative) Urine Occult Blood (Negative) Urine Nitrite (Negative) Urine Bilirubin (Negative) Urine Urobilinogen (0.2-1.0) Ur Leukocyte Esterase (Negative) Urine RBC (0-5) /hpf Urine WBC (0-5) /hpf Ur Epithelial Cells (0-5) /hpf Urine Bacteria (FEW) /hpf Hyaline Casts (0-5) /lpf Waxy Casts (0-5) /lpf Urine Mucus (FEW) /hpf 18 Range/Units 01:28 WBC (3.98-10.04) K/mm3 RBC (3.98-5.22) M/mm3 Hgb (11.2-15.7) gm/L Hct (34.1-44.9) % MCV (79.4-94.8) fl MCH (25.6-32.2) pg MCHC (32.2-35.5) g/dl RDW Std Deviation (36.4-46.3) fL Plt Count (182-369) K/mm3 MPV (9.4-12.3) fl Neut % (Auto) (34.0-71.1) % Lymph % (Auto) (19.3-51.7) % [place] % (Auto) (4.7-12.5) % Eos % (Auto) (0.7-5.8) Baso % (Auto) (0.1-1.2) % Neut # (Auto) (1.56-6.13) K/mm3 Lymph # (Auto) (1.18-3.74) K/mm3 [place] # (Auto) (0.24-0.36) K/mm3 Eos # (Auto) (0.04-0.36) K/mm3 Baso # (Auto) (0.01-0.08) K/mm3 Sodium (136-145) mEq/L Potassium (3.5-5.1) mEq/L Chloride (98-107) mEq/L Carbon Dioxide (21-32) mEq/L Anion Gap (5-15) BUN (7-18) mg/dL Creatinine (0.55-1.02) mg/dL Est Cr Clr Drug Dosing Estimated GFR (MDRD) (>60) mL/min BUN/Creatinine Ratio (14-18) Glucose (83-115) mg/dL Calcium (8.5-10.1) mg/dL Magnesium (1.8-2.4) mg/dl Total Bilirubin (0.2-1.0) mg/dL AST (15-37) U/L ALT (14-59) U/L Alkaline Phosphatase (46-116) U/L Total Protein (6.4-8.2) g/dl Albumin (3.4-5.0) g/dl Globulin gm/dL Albumin/Globulin Ratio (1-2) Urine Color Yellow (Yellow) Urine Appearance Clear (Clear) Urine pH 6.5 (5.0-8.0) Ur Specific [place] 1.020 (1.005-1.030) Urine Protein Trace H (Negative) Urine Glucose (UA) Negative (Negative) Urine Ketones Negative (Negative) Urine Occult Blood 2+ H (Negative) Urine Nitrite Negative (Negative) Urine Bilirubin Negative (Negative) Urine Urobilinogen 1.0 (0.2-1.0) Ur Leukocyte Esterase Negative (Negative) Urine RBC 10-20 H (0-5) /hpf Urine WBC 0-5 (0-5) /hpf Ur Epithelial Cells 0-5 (0-5) /hpf Urine Bacteria Rare (FEW) /hpf Hyaline Casts 0-5 (0-5) /lpf Waxy Casts 0-5 (0-5) /lpf Urine Mucus Not seen (FEW) /hpf Result Diagrams: 09/18/17 01:19 09/18/17 11:38 EKG INTERPRETATION EKG Date: 09/18/17 Time: 11:50 Rhythm: Other (Sinus Rhythm) Rate (Beats/Min): 62 QRS: LBBB Comparison: NA - No Prior EKG Problem List Initiated/Reviewed/Updated: Yes Orders Last 24hrs: Active Orders 24 hr Category Date Time Status Admission Status [Patient Status] [ADT] Routine ADT 09/18/17 03:38 Active Activity as Tolerated [RC] .Routine Care 09/18/17 05:09 Active Regular Diet [DIET] Diet 09/18/17 Breakfast Active Cervical Spine wo Cont [CT] Stat Exams 09/18/17 01:03 Taken Head wo Cont [CT] Stat Exams 09/18/17 01:03 Taken Lumbar Spine 2 or 3V [CR] Stat Exams 09/18/17 01:04 Taken Max Facial Sinus wo Cont [CT] Stat Exams 09/18/17 01:05 Taken Pelvis 1V or 2V [CR] Stat Exams 09/18/17 01:07 Taken Sacrum Coccyx Min 2V [CR] Stat Exams 09/18/17 01:04 Taken HYDROmorphone [Dilaudid] Med 09/18/17 05:09 Active 0.5 mg PO Q4H PRN Sodium Chloride 0.9% with KCl [Normal Saline with 40 Med 09/18/17 04:00 Active mEq KCl] 1,000 ml IV ASDIRECTED Code Status [Resuscitation Status] Routine Resus Stat 09/18/17 05:08 Ordered Medication Orders Hydromorphone HCl (Dilaudid) 0.5 mg PO Q4H PRN PRN Reason: Pain Potassium Chloride/Sodium Chloride (Normal Saline With 40 Meq Kcl) 1,000 mls @ 250 mls/hr IV ASDIRECTED DENISA Last Admin: 09/18/17 03:59 Dose: 250 mls/hr Assessment/Plan Comment:: Assessment/Plan: Acute: Hypercalcemia of Malignancy * Carries a hx/o renal cancer s/p resection and with recurrence * 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 * High turn over rate by inflammatory cells * She had gotten so far nothing but IV hydration * We do not carry Calcitonin and Biphosphonate in the hospital so we have to order them * At this point she really did not want treatment but I could not readily accept her decision since she is really confused (psychiatric overtones) * Spoke to the DPOA and would like conservative treatment * Continue IV hydration and will start her on loop diuretic so she can excrete some calcium * Calcitonin is too expensive (May cost her $8000) but opted for Zolendronic Acid * She would not benefit with steroids because her cancer is not lymphoma, sarcoid or granulomatous disease is nature * Ordered iPTH, 1,25 Vit D level and iCa level; no PTHrP since we know she has malignancy Renal Cancer 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 * Palliative care at this point * Pain medications as needed Severe Dehydration * Unable to care herself due to worsening cancer * She likely had fallen a few times at home * She has no hx/o heart failure so will continue somewhat aggressive intravenous hydration * Monitor output Generalized Weakness with Failure To Thrive * She has not been eating for the past 2 weeks * Her appetite is poor * She had fallen a few times and bust her nose * She very weak get up and even go to the bathroom * PT/OT consult * Dietary consult Weight Loss and Poor Appetite * 2/2 Above Malignancy * Dietary consult * Marinol 2.5 mg po TIDAC AMS/Metabolic Encephalopathy * 2/2 Hypercalcemia of Malignancy * Treat underlying cause * Ativan PRN for abortive seizure End of Life Care * She is DNR/DNI and wants to d * She will benefit with Hospice/Palliative care at this point * SW consult Chronic: Atherosclerotic calcification within the thoracic aorta Mild coronary artery disease Abdominal hernia 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 History of rectal cancer status post resection History of renal mass status post resection with previous recurrence History of mild left-sided hydronephrosis Moderate largely hiatal hernia Hx/o Rectal thickening status post surgical anastomosis Osteopenia status post DEXA scan 10/30/2014 Status post posterior laminectomy with central stenosis in L3-L4 and L4-L5 Plan: Admit to [facility] floor for end of life care Basic treatment only Resume Home Meds Aspiration and Fall Precautions Repeat labs later today PT/OT consult Hospice Consult SW/CM for d/c planning Code status: DNR/DNI Overall prognosis is grim
[2017-09-18] MEDS ORDERED: Sodium Chloride 0.9% 500 ML IV ONE (11:16)
[2017-09-18] MEDS ORDERED: Zolpidem 5 MG Tab PO PRN (11:26)
[2017-09-18] MEDS ORDERED: Polyethylene Glycol 3350 Powder 17 GM Packet PO PRN (11:26)
[2017-09-18] MEDS ORDERED: LORazepam 2 MG/ML SDV IVPUSH PRN (11:26)
[2017-09-18] MEDS ORDERED: HYDROmorphone 0.5 MG/0.5 ML SYRINGE IVPUSH PRN (11:26)
[2017-09-18] MEDS ORDERED: Albuterol/Ipratropium 3.0-0.5 MG/3 ML Neb Soln NEB PRN (11:26)
[2017-09-18] MEDS ORDERED: Acetaminophen 325 MG Tab PO PRN (11:26)
[2017-09-18] MEDS ORDERED: Promethazine 6.25 MG in Sodium Chloride 0.9% 50 ML IV PRN (11:26)
[2017-09-18] MEDS ORDERED: Metoprolol Tartrate 5 MG/5 ML SDV IVPUSH PRN (11:26)
[2017-09-18] MEDS ORDERED: oxyCODONE 5 MG Tab PO PRN (11:26)
[2017-09-18] MEDS ORDERED: hydrALAZINE 20 MG/ML SDV IVPUSH PRN (11:26)
[2017-09-18] MEDS ORDERED: Docusate Sodium 100 MG Cap PO PRN (11:26)
[2017-09-18] MEDS ORDERED: Bisacodyl 5 MG Tab PO PRN (11:26)
[2017-09-18] MEDS ORDERED: LORazepam 2 MG/ML SDV IV PRN (11:26)
[2017-09-18] MEDS ORDERED: Ondansetron 4 MG/2 ML SDV IV PRN (11:26)
[2017-09-18] MEDS ORDERED: Magnesium Oxide 400 MG Tab PO ONE (12:30)
[2017-09-18] MEDS: Potassium Chloride 20 MEQ Tab.ER PO SCH ×2 (13:02→16:30)
--- NOTE | 2017-09-18 13:30 | PCM.SN ---
- Free Text/Narrative Note: Spoke to her DPOA-Friend (Silvio) and discussed with him about her diagnosis, lab results, clinical status and treatment. I informed him, we do not have the medications [Calcitonin and Biphosphonate (Zolendronic Acid)] to treat her hypercalcemia readily available and those have to be ordered. I further informed him that her confusion and memory impairment is due to her considerably high level of calcium and that all I could offer her is hydration and possible loop diuretics but these regimen would not be enough to resolve her hypercalcemia. During my conversation with him, we addressed her code status. I offered Comfort Measures as an extra layer to her code status. Informed Silvio these would help her not suffer or in pain while she is processing of dying. Unfortunately, he declined and told me to keep her current code status as is.
[2017-09-18] MEDS ORDERED: Bumetanide 1 MG/4 ML MDV IVPUSH ONE (13:31)
[2017-09-18] MEDS: Dronabinol 2.5 MG Cap PO SCH (17:11)
[2017-09-18] MEDS ORDERED: Bumetanide 1 MG/4 ML MDV IVPUSH SCH (21:00)
[2017-09-18] MEDS: Bumetanide 1 MG/4 ML MDV IVPUSH SCH (21:06)
[2017-09-19] MEDS: Sodium Chloride 0.9% with KCl 1,000 ML IV SCH ×6 (00:17→21:04)
[2017-09-19] MEDS: Bumetanide 1 MG/4 ML MDV IVPUSH SCH ×2 (06:22→13:53)
[2017-09-19] MEDS ORDERED: Magnesium Oxide 400 MG Tab PO ONE (08:00)
[2017-09-19] MEDS ORDERED: Zoledronic Acid 4 MG in Sodium Chloride 0.9% 100 ML IV ONE (09:00)
[2017-09-19] MEDS: Dronabinol 2.5 MG Cap PO SCH ×3 (09:10→16:13)
--- NOTE | 2017-09-19 09:40 | PCM.PN ---
- General Info Date of Service: 09/19/17 Admission Dx/Problem (Free Text): Admission Diagnosis/Problem Admission Diagnosis/Problem Dehydration Subjective Update: Follow Up Functional Status: Reports: Pain Controlled, Urinating. Denies: Tolerating Diet , Ambulating - Review of Systems General: Reports: Fatigue, Malaise. Denies: Fever, Chills HEENT: Reports: No Symptoms Pulmonary: Denies: Shortness of Breath Cardiovascular: Denies: Chest Pain, Dyspnea on Exertion, Orthopnea, Lightheadedness Gastrointestinal: Reports: Decreased Appetite. Denies: Abdominal Pain, Nausea, Vomiting Genitourinary: Reports: No Symptoms Musculoskeletal: Reports: No Symptoms Skin: Denies: Cyanosis, Mottled, Pallor, Diaphoresis, Dryness, Rash Neurological: Reports: Confusion, Difficulty Walking, Weakness, Gait Disturbance. Denies: Headache Psychiatric: Denies: Depression, Anxiety, Agitation, Hallucinations Systems Review Comment:: No overnight or acute issues. She is about the same. No complaints and still has no appetite. Her Mg is level is 1.6. No CBC done this AM. - Patient Data Vitals - Most Recent: Last Vital Signs Temp 36.3 C 09/19/17 03:55 Pulse 66 09/19/17 03:55 Resp 14 09/19/17 03:55 BP 138/62 09/19/17 04:00 Pulse Ox 97 09/19/17 03:55 Weight - Most Recent: 53.66 kg I&O - Last 24 Hours: Intake & Output 09/18/17 09/19/17 09/19/17 22:59 06:59 14:59 Intake Total 1752 3207 Output Total 6198 0594 Balance -398 -718 Lab Results Last 24 Hours: Laboratory Results - last 24 hr 09/18/17 09/18/17 09/19/17 Range/Units 11:38 11:38 05:40 WBC 5.17 (3.98-10.04) K/mm3 RBC 3.17 L (3.98-5.22) M/mm3 Hgb 9.9 L (11.2-15.7) gm/L Hct 31.4 L (34.1-44.9) % MCV 99.1 H (79.4-94.8) fl MCH 31.2 (25.6-32.2) pg MCHC 31.5 L (32.2-35.5) g/dl RDW Std Deviation 51.5 H (36.4-46.3) fL Plt Count 299 (182-369) K/mm3 MPV 8.9 L (9.4-12.3) fl Neut % (Auto) 69.2 (34.0-71.1) % Lymph % (Auto) 15.5 L (19.3-51.7) % [place] % (Auto) 13.7 H (4.7-12.5) % Eos % (Auto) 1.0 (0.7-5.8) Baso % (Auto) 0.2 (0.1-1.2) % Neut # (Auto) 3.58 (1.56-6.13) K/mm3 Lymph # (Auto) 0.80 L (1.18-3.74) K/mm3 [place] # (Auto) 0.71 H (0.24-0.36) K/mm3 Eos # (Auto) 0.05 (0.04-0.36) K/mm3 Baso # (Auto) 0.01 (0.01-0.08) K/mm3 Sodium 145 (136-145) mEq/L Potassium 3.8 (3.5-5.1) mEq/L Chloride 109 H (98-107) mEq/L Carbon Dioxide 30 (21-32) mEq/L Anion Gap 9.8 (5-15) BUN 26 H (7-18) mg/dL Creatinine 1.0 (0.55-1.02) mg/dL Est Cr Clr Drug Dosing 35.65 mL/min Estimated GFR (MDRD) 53 (>60) mL/min BUN/Creatinine Ratio 26.0 H (14-18) Glucose 137 H (83-115) mg/dL Calcium 14.1 H* (8.5-10.1) mg/dL Magnesium 1.9 (1.8-2.4) mg/dl Total Bilirubin 0.8 (0.2-1.0) mg/dL AST 23 (15-37) U/L ALT 18 (14-59) U/L Alkaline Phosphatase 129 H (46-116) U/L C-Reactive Protein 13.0 H* (<1.0) mg/dL Total Protein 6.9 (6.4-8.2) g/dl Albumin 2.9 L (3.4-5.0) g/dl Globulin 4.0 gm/dL Albumin/Globulin Ratio 0.7 L (1-2) 09/19/17 Range/Units 05:40 WBC (3.98-10.04) K/mm3 RBC (3.98-5.22) M/mm3 Hgb (11.2-15.7) gm/L Hct (34.1-44.9) % MCV (79.4-94.8) fl MCH (25.6-32.2) pg MCHC (32.2-35.5) g/dl RDW Std Deviation (36.4-46.3) fL Plt Count (182-369) K/mm3 MPV (9.4-12.3) fl Neut % (Auto) (34.0-71.1) % Lymph % (Auto) (19.3-51.7) % [place] % (Auto) (4.7-12.5) % Eos % (Auto) (0.7-5.8) Baso % (Auto) (0.1-1.2) % Neut # (Auto) (1.56-6.13) K/mm3 Lymph # (Auto) (1.18-3.74) K/mm3 [place] # (Auto) (0.24-0.36) K/mm3 Eos # (Auto) (0.04-0.36) K/mm3 Baso # (Auto) (0.01-0.08) K/mm3 Sodium (136-145) mEq/L Potassium (3.5-5.1) mEq/L Chloride (98-107) mEq/L Carbon Dioxide (21-32) mEq/L Anion Gap (5-15) BUN (7-18) mg/dL Creatinine (0.55-1.02) mg/dL Est Cr Clr Drug Dosing mL/min Estimated GFR (MDRD) (>60) mL/min BUN/Creatinine Ratio (14-18) Glucose (83-115) mg/dL Calcium (8.5-10.1) mg/dL Magnesium 1.6 L (1.8-2.4) mg/dl Total Bilirubin (0.2-1.0) mg/dL AST (15-37) U/L ALT (14-59) U/L Alkaline Phosphatase (46-116) U/L C-Reactive Protein (<1.0) mg/dL Total Protein (6.4-8.2) g/dl Albumin (3.4-5.0) g/dl Globulin gm/dL Albumin/Globulin Ratio (1-2) Med Orders - Current: Current Medications Acetaminophen (Tylenol) 650 mg PO Q4H PRN PRN Reason: Pain (Mild 1-3)/fever Last Admin: 09/18/17 21:06 Dose: 650 mg Albuterol/Ipratropium (Duoneb 3.0-0.5 Mg/3 Ml) 3 ml NEB Q4H PRN PRN Reason: Shortness Of Breath/wheezing Bisacodyl (Dulcolax) 5 mg PO DAILY PRN PRN Reason: Constipation Bumetanide (Bumex) 0.[address] [facility] Last Admin: 09/19/17 06:22 Dose: 0.5 mg Docusate Sodium (Colace) 100 mg PO BID PRN PRN Reason: Constipation Dronabinol (Marinol) 2.[address] [facility] Last Admin: 09/18/17 17:11 Dose: Not Given Hydralazine HCl (Apresoline) 10 mg IVPUSH Q4H PRN PRN Reason: Hypertension Hydromorphone HCl (Dilaudid) 0.5 mg PO Q4H PRN PRN Reason: Pain Hydromorphone HCl (Dilaudid) 0.5 mg IVPUSH Q2H PRN PRN Reason: Pain (severe 7-10) Last Admin: 09/19/17 00:20 Dose: 0.5 mg Potassium Chloride/Sodium Chloride (Normal Saline With 40 Meq Kcl) 1,000 mls @ 250 mls/hr IV ASDIRECTED [facility] Last Admin: 09/19/17 08:14 Dose: 250 mls/hr Promethazine HCl 6.25 mg/ (Sodium Chloride) 50.25 mls @ 100 mls/hr IV Q6H PRN PRN Reason: Nausea/Vomiting Lorazepam (Ativan) 2 mg IVPUSH Q4H PRN PRN Reason: Seizures Lorazepam (Ativan) 0.5 mg IV Q6H PRN PRN Reason: Anxiety Magnesium Sulfate (Pharmacy To Dose - Magnesium Replacement) [address] [facility] Metoprolol Tartrate (Lopressor) 5 mg IVPUSH Q4H PRN PRN Reason: Tachycardia Ondansetron HCl (Zofran) 4 mg IV Q6H PRN PRN Reason: Nausea/Vomiting Oxycodone HCl (Oxycodone) 5 mg PO Q4H PRN PRN Reason: Pain (moderate 4-6) Polyethylene Glycol (Miralax) 17 gm PO DAILY PRN PRN Reason: Constipation Potassium Chloride (Pharmacy To Dose - Potassium Replacement) [address] [facility] Senna/Docusate Sodium (Senna Plus) 1 tab PO BID PRN PRN Reason: Constipation Zolpidem Tartrate (Ambien) 5 mg PO BEDTIME PRN PRN Reason: Sleep Discontinued Medications Bumetanide (Bumex) 0.5 mg IVPUSH ONETIME ONE Stop: 09/18/17 13:32 Last Admin: 09/18/17 13:49 Dose: 0.5 mg Bumetanide (Bumex) 0.[address] [facility] Hydromorphone HCl (Dilaudid) 0.5 mg IVPUSH ONETIME ONE Stop: 09/18/17 02:33 Last Admin: 09/18/17 02:38 Dose: 0.5 mg Sodium Chloride (Normal Saline) 1,000 mls @ 250 mls/hr IV ASDIRECTED [facility] Last Admin: 09/18/17 01:23 Dose: 250 mls/hr Potassium Chloride/Sodium Chloride (Normal Saline With 40 Meq Kcl) 1,000 mls @ 25 mls/hr IV ASDIRECTED [facility] Sodium Chloride (Normal Saline) 500 mls @ 999 mls/hr IV .BOLUS ONE Stop: 09/18/17 11:46 Last Admin: 09/18/17 11:31 Dose: 999 mls/hr Zoledronic Acid 4 mg/ Sodium (Chloride) 105 mls @ 210 mls/hr IV ONETIME ONE Stop: 09/19/17 09:29 Last Admin: 09/19/17 09:11 Dose: 210 mls/hr Magnesium Oxide (Magnesium Oxide) 400 mg PO ONETIME ONE Stop: 09/18/17 12:31 Last Admin: 09/18/17 13:02 Dose: 400 mg Magnesium Oxide (Magnesium Oxide) 800 mg PO ONETIME ONE Stop: 09/19/17 08:01 Last Admin: 09/19/17 09:11 Dose: 800 mg Potassium Chloride (Klor-Con M20) 40 meq PO Q4H DENISA Stop: 09/18/17 17:01 Last Admin: 09/18/17 16:30 Dose: 40 meq - Exam General: Alert, Cooperative, No Acute Distress, Other (emaciated) HEENT: Pupils Equal, Pupils Reactive. No: Mucous Membr. Moist/[place] Neck: Supple, Trachea Midline Lungs: Normal Respiratory Effort, Decreased Breath Sounds Cardiovascular: Regular Rate, Regular Rhythm GI/Abdominal Exam: Normal Bowel Sounds, Soft, Non-Tender, No Organomegaly, No Distention, No Abnormal Bruit, No Mass (Female) Exam: Deferred Back Exam: Normal Inspection, Decreased Range of Motion Extremities: Normal Inspection, Normal Range of Motion, Non-Tender, No Pedal Edema, Normal Capillary Refill, Other (muscle atropy on b/l lower extremity) Peripheral Pulses: 2+: Dorsalis Pedis (L), Dorsalis Pedis (R) Skin: Warm, Dry, Intact Neurological: No New Focal Deficit (very limited due to AMS and Weakness). No: Normal Gait Psy/Mental Status: Alert, Normal Affect, Labile Mood. No: Suicidal Ideation, Hallucinations - Problem List Review Problem List Initiated/Reviewed/Updated: Yes - My Orders Last 24 Hours: My Active Orders 09/18/17 11:26 Cardiac Monitoring [RC] CONTINUOUS Height and Weight [RC] 04 Intake and Output [RC] 04,16 Oxygen Therapy [RC] PRN Up With Assistance [RC] ASDIRECTED Up ad Adele [RC] ASDIRECTED VTE/DVT Education [RC] PER UNIT ROUTINE Vital Signs [RC] Q4HR Consult to Case Management [CONS] Routine Consult to Crate Maker [CONS] Routine Consult to Reactor Service Operator [CONS] Routine Consult to Spiritual Care [CONS] Routine Acetaminophen [Tylenol] 650 mg PO Q4H PRN Albuterol/Ipratropium [DuoNeb 3.0-0.5 MG/3 ML] 3 ml NEB Q4H PRN Bisacodyl [Dulcolax] 5 mg PO DAILY PRN Docusate Sodium [Colace] 100 mg PO BID PRN Docusate Sodium/Sennosides [Senna Plus] 1 tab PO BID PRN HYDROmorphone [Dilaudid] 0.5 mg IVPUSH Q2H PRN LORazepam [Ativan] 0.5 mg IV Q6H PRN LORazepam [Ativan] 2 mg IVPUSH Q4H PRN Metoprolol Tartrate [Lopressor] 5 mg IVPUSH Q4H PRN Ondansetron [Zofran] 4 mg IV Q6H PRN Polyethylene Glycol 3350 [MiraLAX] 17 gm PO DAILY PRN Promethazine [Phenergan] 6.25 mg Sodium Chloride 0.9% [Normal Saline] 50 ml IV Q6H Zolpidem [Ambien] 5 mg PO BEDTIME PRN hydrALAZINE [Apresoline] 10 mg IVPUSH Q4H PRN oxyCODONE 5 mg PO Q4H PRN 09/18/17 11:27 Antiembolic Hose [OM.PC] Per Unit Routine 09/18/17 11:28 RT Aerosol Therapy [RC] ASDIRECTED 09/18/17 11:30 Magnesium Rep Pharmacy to Dose [Pharmacy to Dose - Magnesium Replacement] 1 dose .XX ASDIRECTED Potassium Rep Pharmacy to Dose [Pharmacy to Dose - Potassium Replacement] 1 dose .XX ASDIRECTED 09/18/17 11:36 EKG 12 Lead [EK] Routine 09/18/17 11:38 CALCITRIOL(1,25 DI-OH VIT D) [REF] Stat CALCIUM, IONIZED, SERUM [REF] Stat PTH, INTACT [REF] Stat 09/18/17 11:42 Patient Status [ADT] Routine 09/18/17 17:00 Dronabinol [Marinol] 2.5 mg PO TIDAC 09/18/17 21:00 Bumetanide [Bumex] 0.5 mg IVPUSH BIDDIURETIC 09/20/17 05:11 MAGNESIUM [CHEM] AM 09/21/17 05:11 MAGNESIUM [CHEM] AM - Plan Plan:: Assessment/Plan: Acute: Hypercalcemia of Malignancy * Carries a hx/o renal cancer s/p resection and with recurrence * 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 * High turn over rate by inflammatory cells * She had gotten so far nothing but IV hydration * We do not carry Calcitonin and Biphosphonate in the hospital so we have to order them * At this point she really did not want treatment but I could not readily accept her decision since she is really confused (psychiatric overtones) * Spoke to the DPOA and would like conservative treatment * Continue IV hydration and will start her on loop diuretic so she can excrete some calcium * Calcitonin is too expensive (May cost her $8000) but opted for Zolendronic Acid--> start biphosphonate treatment today * She would not benefit with steroids because her cancer is not lymphoma, sarcoid or granulomatous disease is nature * Ordered iPTH, 1,25 Vit D level and iCa level; no PTHrP since we know she has malignancy Renal Cancer 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 * Palliative care at this point * Pain medications as needed Generalized Weakness with Failure To Thrive * She has not been eating for the past 2 weeks * Her appetite is poor * She had fallen a few times and bust her nose * She very weak get up and even go to the bathroom * PT/OT consult * Dietary consult Weight Loss and Poor Appetite * 2/2 Above Malignancy * Dietary consult * Continue Marinol 2.5 mg po TIDAC AMS/Metabolic Encephalopathy * 2/2 Hypercalcemia of Malignancy * Treat underlying cause * Ativan PRN for abortive seizure End of Life Care * She is DNR/DNI and wants to d * She will benefit with Hospice/Palliative care at this point * SW consult Resolved: S/p Severe Dehydration * Unable to care herself due to worsening cancer * She likely had fallen a few times at home * She has no hx/o heart failure so will continue somewhat aggressive intravenous hydration * Output is good Chronic: Atherosclerotic calcification within the thoracic aorta Mild coronary artery disease Abdominal hernia 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 History of rectal cancer status post resection History of renal mass status post resection with previous recurrence History of mild left-sided hydronephrosis Moderate largely hiatal hernia Hx/o Rectal thickening status post surgical anastomosis Osteopenia status post DEXA scan 10/30/2014 Status post posterior laminectomy with central stenosis in L3-L4 and L4-L5 Plan: She is essentially the same clinically Continue basic treatment only Resume Home Meds Aspiration and Fall Precautions May repeat lab in AM PT/OT consult Hospice Consult SW/CM for d/c planning Code status: DNR/DNI Overall prognosis remains grim
--- NOTE | 2017-09-19 10:01 | CR ---
Pelvis: AP view of the pelvis was obtained. Comparison: No prior pelvis exam. Joint spaces within both hips are maintained. Degenerative change and mild scoliosis is noted within the visualized spine. Lesion is identified off the right iliac bone which is noted on prior CT pelvis of 08/31/16. Other lucencies are seen within the left hip and left iliac bone compatible with additional bone metastasis. No acute fracture is appreciated. Impression: 1. Bony metastatic lesions as noted above. Degenerative change within the lumbar spine. 2. Nothing acute is seen on AP pelvis study. Diagnostic code #3
--- NOTE | 2017-09-19 10:02 | CR ---
Lumbar spine: AP, lateral and coned down lateral views centered to the lumbosacral junction were obtained. Mild disc space narrowing is noted at L4-L5 with fairly severe disc space narrowing at L5-S1 containing vacuum phenomena. Other disc spaces are maintained. Moderate compression deformity is noted on L3 which is noted on prior CT study of 08/31/16. Other vertebral body heights are maintained. Bony structures are osteopenic. Pedicles are intact. No abnormal subluxation is seen. Impression: 1. Stable compression deformity of L3. Osteopenia, degenerative change with no acute abnormality being seen. Diagnostic code #3
--- NOTE | 2017-09-19 10:02 | CT ---
Head CT Technique: Multiple axial sections through the brain were obtained. Intravenous contrast was not utilized. Comparison: No previous intracranial imaging. Findings: Ventricles along the basal cisterns and sulci over the convexities are mildly prominent. Diminished density is noted within the periventricular and within the subcortical white matter as well as basal ganglia compatible with small vessel ischemic demyelination change. Basal ganglia calcification is also noted. No evidence of intracranial hemorrhage. No midline shift or mass effect is seen. Bone window settings show destruction of the superior left clivus with extension into the sphenoid sinus as well as involvement of the inferior pituitary fossa. No other calvarial abnormality is seen. Impression: 1. Destructive lesion is again seen within the left upper side of the clivus with extension in the sphenoid sinus and pituitary fossa. 2. Senescent change as described above. No acute abnormality is otherwise seen on noncontrast head CT study. Diagnostic code #9 I agree with preliminary report issued by [facility] ([facility] report finalized on 09/18/17, 4:00 AM)
--- NOTE | 2017-09-19 10:02 | CR ---
Sacrum and coccyx: Three views of the sacrum and coccyx were obtained. Disc space narrowing at L5-S1 with vacuum phenomena. Osteopenia is seen. Surgical anastomotic sutures are noted within the rectum. Slight degenerative change within the inferior left sacroiliac joint. Lytic lesion is seen within the intertrochanteric region of the left hip measuring about 4.4 cm. Additional lytic lesion is seen within the left iliac wing measuring about 3.7 cm. No acute fracture or other abnormality is seen. Impression: 1. Two lytic lesions as noted above. 2. Degenerative change and osteopenia. 3. Nothing acute is appreciated. Diagnostic code #3
--- NOTE | 2017-09-19 10:02 | CT ---
CT facial bones Technique: Multiple axial sections through the facial bones were obtained. Intravenous contrast not utilized. Reconstructed sagittal and coronal images were reviewed. Comparison: No prior facial bone study. Findings: Mass is identified with destruction of the left side of the clivus. Soft tissue material extends into the sphenoid sinus as well as into the pituitary fossa with destruction of the inferior pituitary floor. Degenerative change is noted between the dens and C2 vertebral body. Right and left globes are symmetric. No acute fracture is appreciated within the facial bones. Impression: 1. Soft tissue mass with bony destruction involving the left side of the clivus with soft tissue extension of the sphenoid sinus as well as superior extension into the pituitary fossa. 2. No other acute abnormality is appreciated. Diagnostic code #9 I agree with preliminary report issued by [facility] ([facility] report finalized on 07/19/17, 5:06 AM Central Time)
--- NOTE | 2017-09-19 10:02 | CT ---
CT cervical spine Technique: Multiple axial sections through the cervical spine were obtained. Comparison: No prior cervical spine imaging. Motion artifact is seen diminishing details. Findings: Lytic lesion is again seen within the upper left side of the clivus with extension into the sphenoid sinus and pituitary fossa. Degenerative change is noted between the dens and anterior arch of C1. Disc space narrowing is felt to be present at C5-C6 and C6-C7 with anterior osteophytes. Minimal anterior spondylolisthesis noted at C4-C5 due to degenerative apophyseal change. Other degenerative apophyseal changes scattered throughout the cervical spine. Osteopenia is noted. Scattered areas of neural foraminal stenosis is seen. No discrete fracture is appreciated. Impression: 1. Motion artifact which diminishes details. 2. Lytic lesion with soft tissue mass to the left side of the upper clivus is again noted with extension into the sphenoid sinus and pituitary fossa. 3. Degenerative change as noted above with osteopenia. No acute fracture is definitely appreciated. Diagnostic code #3 I agree with preliminary report issued by [facility] ([facility] report finalized on 09/18/17, 3:59 AM Central Time)
--- NOTE | 2017-09-19 16:19 | CT ---
Head CT Technique: Multiple axial sections through the brain were obtained. Intravenous contrast was not utilized. Comparison: Prior head CT study of 09/18/17. Limitations: Motion artifact is present. Findings: Ventricles along with basal cisterns and sulci over the convexities are mildly prominent. Diminished density is noted within the periventricular and subcortical white matter as well as basal ganglia compatible with stable small vessel ischemic demyelination change. No other abnormal parenchymal densities are seen other than incidental basal ganglia calcification. Soft tissue mass with destruction of the upper left clivus is again noted. This extends in the sphenoid sinus and inferior pituitary fossa. Atherosclerotic calcification is seen within carotid siphon and vertebral vessels. Bone window setting shows no acute calvarial abnormality. Impression: 1. Stable findings from prior head CT exam. Study somewhat limited due to motion. 2. Nothing acute is appreciated. Diagnostic code #3
--- NOTE | 2017-09-19 16:21 | CR ---
Cervical spine: Crosstable lateral, AP and odontoid views were obtained. Comparison: Previous CT cervical spine study of 09/18/17. Mild areas of spondylolisthesis are seen which is stable from prior CT exam. Mild disc space narrowing is noted at C5-6 and C6-7 with anterior osteophytes at these levels. Degenerative apophyseal change is noted. Prevertebral soft tissues are normal. Osteopenia is present. Minimal scoliosis is noted. No fracture is seen. Impression: 1. Osteopenia and degenerative change. 2. Nothing acute is appreciated on 3 view cervical spine exam. Diagnostic code #2
--- NOTE | 2017-09-19 16:29 | CR ---
Right knee: AP and lateral views the right knee were obtained. Lateral joint space appears somewhat narrowed. Medial joint space is preserved. No joint effusion is seen. Vascular calcification and osteopenia is noted. Impression: 1. Findings as noted above. Nothing acute is appreciated on 3 view right knee exam. Diagnostic code #2
--- NOTE | 2017-09-19 16:29 | CR ---
Left knee: AP and lateral views of the left knee were obtained as well as bilateral sunrise patellar views. Comparison: No prior knee exam. Joint space narrowing is seen within both patellofemoral joints. Joint spaces within the medial and lateral compartments appear maintained. No joint effusion is seen. Osteopenia is noted. Vascular calcification is seen. Nothing acute is appreciated. Impression: 1. Findings as noted above. 2. Nothing acute is seen on 3 view left knee exam. Diagnostic code #2
--- NOTE | 2017-09-19 16:31 | CR ---
Chest: 2 views of the chest were obtained. Comparison: Prior chest x-ray of 03/03/13. Heart size is normal. Tortuous thoracic aorta is seen. Scarring is noted within the left lung base. Several nodules are seen within the upper right lung which are stable. No acute parenchymal densities are seen. Scoliosis is noted within the spine. Degenerative change is noted within both shoulders. Osteopenia is present. Impression: 1. Incidental findings. Nothing acute is seen on 2 view chest x-ray. Diagnostic code #2
--- NOTE | 2017-09-19 16:31 | CR ---
Left elbow: 2 views of the left elbow were obtained. Deformity within the elbow is seen likely relating to old injury. This could obscure subtle fracture but I do not see anything to indicate a definite fracture. No joint effusion is seen. Osteopenia is noted. Impression: 1. Deformity of the elbow likely relating to old injury. 2. No definite acute abnormality is appreciated on 2 view left elbow study. Diagnostic code #2
--- NOTE | 2017-09-19 16:33 | CR ---
Right elbow: 2 views of the right elbow were obtained. Comparison: No prior right elbow study. Joint spaces are preserved. No joint effusion is seen. No acute fracture or other bony abnormality is identified. Osteopenia is seen. Impression: 1. No acute abnormality is appreciated on 2 view right elbow study. Diagnostic code #2
--- NOTE | 2017-09-19 16:38 | CR ---
Left femur: AP and lateral views of the left femur were obtained. Comparison: No previous left femur study. Left femur: Bony structures are osteopenic. Vascular calcification is noted. No fracture or other bony abnormality is seen. Lytic lesion is again noted within the left iliac wing and intertrochanteric region of the left hip. Impression: 1. Findings as previously noted. Nothing acute is seen on left femur. Diagnostic code #3 Right femur: AP and lateral views of the right femur were obtained. Comparison: No previous right femur exam. Lytic lesion is again seen within the lateral right iliac wing. Osteopenia is noted as well as vascular calcification. No acute fracture or other bony abnormality is seen. Impression: 1. Findings as previously noted. Nothing acute is seen on the right femur study. Diagnostic code #3
--- NOTE | 2017-09-19 16:39 | CR ---
Pelvis: AP view of the pelvis was obtained. Comparison: Prior pelvis exam of 09/18/17. Lytic lesions are again noted as previously described. Degenerative changes is noted within the lumbar spine. No acute fracture is seen. Osteopenia is noted. Impression: 1. Stable findings as noted above. Nothing acute is seen on AP pelvis study. Diagnostic code #3
--- NOTE | 2017-09-19 16:39 | CR ---
Left humerus: 2 views of the left humerus were obtained. Inferior spurring is noted off the medial humeral head. Deformity within the left elbow is again noted. Osteopenia is seen. Calcification is noted within the soft tissues of the left shoulder compatible with previous tendinitis. Nothing acute is seen. Impression: 1. Incidental findings as noted above. Nothing acute is seen on 2 view left humerus study. Diagnostic code #2
--- NOTE | 2017-09-19 16:41 | CR ---
Right humerus: 2 views of the right humerus were obtained. Inferior spurring is noted off the medial humeral head. Osteopenia is noted. No acute fracture or other abnormality is seen. Impression: 1. Findings as noted above. Nothing acute is seen on 2 view right humerus exam. Diagnostic code #2
[2017-09-20] MEDS: Sodium Chloride 0.9% with KCl 1,000 ML IV SCH ×2 (01:43→06:16)
[2017-09-20] MEDS: Bumetanide 1 MG/4 ML MDV IVPUSH SCH (06:13)
[2017-09-20] MEDS: Dronabinol 2.5 MG Cap PO SCH ×2 (06:15→11:50)
[2017-09-20] MEDS ORDERED: Magnesium Sulfate/Water 2 GM in Premix Bag 1 BAG IV ONE (09:00)
[2017-09-20 11:57] VITALS: BP 137/45
--- NOTE | 2017-09-20 12:44 | PCM.DCSUM1 ---
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 She reports a lesion on her nose bridge but could not tell me how she got it. She also reports to having butt pain and right hip tenderness but both have now improved. Patient is able to provide some pertinent information but overall she is a poor historian. However according to Silvio house-mate and AIDE, she has been very weak, dehydrated, and not been eating or drinking over the past week. About that period of time, she had expressed to him about wanting to . Patient lost her for good several years now but has a son in [place], [place] who she has not seen or talk to in a very long time. She currently lives with Silvio who appears to be her volunteer helper and or partial career development director. Her initial workup in the emergency department shows a CBC remarkable for RBC of 3.23, hemoglobin of 10.1, hematocrit of 31.2, MCH of 96.6, RDW of 40.7, MPV of 8.6, neutrophils of 76.8%, lymphocytes of 11.2% and eosinophils of 0.4%. Her chemistry is remarkable for potassium of 2.7, carbon dioxide of 33, BUN of 31, creatinine of 1.1, glucose of 145, calcium of 16, total bilirubin of 1.1, alkaline phosphatase of 146, and albumin of 3.3. Her UA is negative for UTI but suggestive of hematuria with 2+ protein and urine RBC of 11-20. Head CT scan report reads large bony destructive process involving the clivus extending into the sphenoid sinus. No evidence of acute infarct, or intracranial hemorrhage or mass. 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 No acute fracture is identified. CT scan of the cervical spine reads no acute fracture or dislocation, cervical spondylosis changes with loss of disc space height from C4-C7, bilateral facet arthropathy throughout the cervical spine. 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 She is DNR/DNI. Diagnosis: Stroke: No Modified [place] Scale: No Symptoms at All Modified [place] Scale Score: 0 - Discharge Data Discharge Date: 09/20/17 Discharge Disposition: Home, Self-Care 01 Condition: Good - Patient Summary/Data Operative Procedure(s) Performed: None Complications: None Consults: Consultations 09/18/17 11:26 Consult to Case Management [CONS] Routine Consult to Judge'S Clerk [CONS] Routine Consult to Financial Associate [CONS] Routine Consult to Spiritual Care [CONS] Routine 09/19/17 10:20 Consult to Occupational Therapy [OT Evaluation and Treatment] [CONS] Routine Consult to Physical Therapy [PT Evaluation and Treatment] [CONS] Routine 09/19/17 13:33 Consult to Hospice [CONS] Routine Consult to Palliative Care [CONS] Routine Labs Pending at D/C: None Recommended Follow-up Testing/Procedures: None Planned Operative Procedure(s) after DC: None Hospital Course: Assessment/Plan: Acute: Hypercalcemia of Malignancy * Carries a hx/o renal cancer s/p resection and with recurrence * 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 * High turn over rate by inflammatory cells * She had gotten so far nothing but IV hydration * We do not carry Calcitonin and Biphosphonate in the hospital so we have to order them * At this point she really did not want treatment but I could not readily accept her decision since she is really confused (psychiatric overtones) * Spoke to the DPOA and would like conservative treatment * Continue IV hydration and will start her on loop diuretic so she can excrete some calcium * Calcitonin is too expensive (May cost her $8000) but opted for Zolendronic Acid--> start biphosphonate treatment today * She would not benefit with steroids because her cancer is not lymphoma, sarcoid or granulomatous disease is nature * Ordered iPTH, 1,25 Vit D level and iCa level; no PTHrP since we know she has malignancy Renal Cancer 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 * Palliative care at this point * Pain medications as needed Generalized Weakness with Failure To Thrive * She has not been eating for the past 2 weeks * Her appetite is poor * She had fallen a few times and bust her nose * She very weak get up and even go to the bathroom * PT/OT consult * Dietary consult Weight Loss and Poor Appetite * 2/2 Above Malignancy * Dietary consult * Continue Marinol 2.5 mg po TIDAC AMS/Metabolic Encephalopathy * 2/2 Hypercalcemia of Malignancy * Treat underlying cause * Ativan PRN for abortive seizure End of Life Care * She is DNR/DNI and wants to * She will benefit with Hospice/Palliative care at this point * SW consult Resolved: S/p Severe Dehydration * Unable to care herself due to worsening cancer * She likely had fallen a few times at home * She has no hx/o heart failure so will continue somewhat aggressive intravenous hydration * Output is good Chronic: Atherosclerotic calcification within the thoracic aorta Mild coronary artery disease Abdominal hernia 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 History of rectal cancer status post resection History of renal mass status post resection with previous recurrence History of mild left-sided hydronephrosis Moderate largely hiatal hernia Hx/o Rectal thickening status post surgical anastomosis Osteopenia status post DEXA scan 10/30/2014 Status post posterior laminectomy with central stenosis in L3-L4 and L4-L5 Plan: She is essentially the same clinically Continue basic treatment only Resume Home Meds Aspiration and Fall Precautions May repeat lab in AM PT/OT consult Hospice Consult SW/CM for d/c planning --> Patient to discharge home today, 09/20/17, with hospice Code status: DNR/DNI Hospital Course: Jacquelyn was admitted for hypercalcemia and malignancy. Her initial workup in the ED showed a CBC remarkable for RBC 3.23, hemoglobin 10.1, hematocrit 31.2, MCH 96.6, RDW 40.7, MPV 8.6, neutrophils 76.8%, lymphocytes 11.2% and eosinophils 0.4%. Her chemistry is remarkable for potassium 2.7, carbon dioxide 33, BUN 31, creatinine 1.1, glucose 145, calcium 16, total bilirubin 1.1, alkaline phos 146 , and albumin 3.3. Her UA was negative for UTI but suggestive of hematuria with 2+ protein and urine RBC of 11-20. Head CT scan report read as large bony destructive process involving the clivus extending into the sphenoid sinus with no evidence of acute infarct, or intracranial hemorrhage or mass. 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 CT scan of the cervical spine read as no acute fracture or dislocation, cervical spondylosis changes with loss of disc space height from C4-C7, bilateral facet arthropathy throughout the cervical spine. Patient carries a hx/o renal cancer s/p resection and with recurrence with metastasis to the bones. Patient voiced that she did not want treatment but her decision was unable to be accepted with her confusion. Silvio NOBLE, initially elected for conservative treatment which included IV hydration and loop diuretic, but was open to meeting with hospice. Palliative care was consulted. Patient was also very weak with failure to thrive as she has not been eating for the past 2 weeks. PT/OT, and dietary were consulted. Marinol was continued during admission. [facility] visited with Silvio BERMEO, and patient's case was dicussed with her PCP, Dr Randolph. After review , Dr Randolph was in agreement that patient should have Hospice when she goes home. Silvio decided that he would like like to take patient home on hospice via private vehicle and this was verified as being okay with PT. Patient is discharged home with hospice today. - Patient Instructions Diet: Usual Diet as Tolerated Activity: As Tolerated Driving: Do Not Drive Showering/Bathing: May Shower Notify Provider of: Fever, Increased Pain, Swelling and Redness, Nausea and/or Vomiting Other/Special Instructions: - Discharge to Home Under Hospice/Palliative Care. - Follow up with your PCP - Discharge Plan *PRESCRIPTION DRUG MONITORING PROGRAM REVIEWED*: Not Applicable *COPY OF PRESCRIPTION DRUG MONITORING REPORT IN PATIENT OLIVIER: Not Applicable Home Medications: Home Meds . [No Known Home Meds] 09/18/17 [History] Patient Handouts: Hypercalcemia, Weakness, [id number], Toxic Metabolic Encephalopathy, Malnutrition, Palliative Care, Bone Metastasis, End-of-Life Care , Hospice, Dehydration, Elderly, [id number], Bone Scan, [id number] Referrals: Yaw Randolph MD [Primary Care Provider] - (Patient to follow up with PCP) - Discharge Summary/Plan Comment DC Time >30 min.: Yes (45) - General Info Date of Service: 09/20/17 Admission Dx/Problem (Free Text: Admission Diagnosis/Problem Admission Diagnosis/Problem Dehydration Subjective Update: In to see Jacquelyn. She is laying in bed. She appears very fatigued but does not appear to be in pain. She reports that her appetite is still poor. She has no other complaints. Nursing reports no overnight or acute issues. Functional Status: Reports: Pain Controlled, Urinating. Denies: Tolerating Diet (Poor appetite ), Ambulating (Weakness present ) - Review of Systems General: Reports: Fatigue, Malaise HEENT: Reports: No Symptoms Pulmonary: Reports: No Symptoms. Denies: Shortness of Breath, Cough Cardiovascular: Reports: No Symptoms. Denies: Chest Pain, Lightheadedness Gastrointestinal: Reports: Decreased Appetite. Denies: Abdominal Pain, Constipation, Diarrhea, Nausea, Vomiting Genitourinary: Reports: No Symptoms Musculoskeletal: Reports: No Symptoms Skin: Reports: No Symptoms Neurological: Reports: No Symptoms. Denies: Dizziness, Headache Psychiatric: Reports: No Symptoms - Patient Data Vitals - Most Recent: Last Vital Signs Temp 98.1 F 09/20/17 11:55 Pulse 63 09/20/17 11:55 Resp 14 09/20/17 11:55 BP 137/45 L 09/20/17 11:55 Pulse Ox 94 L 09/20/17 11:55 Weight - Most Recent: 53.841 kg I&O - Last 24 hours: Intake & Output 09/19/17 09/20/17 09/20/17 22:59 06:59 14:59 Intake Total 4410 3382 800 Output Total 3475 1250 1900 Balance 935 2132 -1100 Lab Results - Last 24 hrs: Laboratory Results - last 24 hr 09/20/17 Range/Units 06:04 Sodium 141 (136-145) mEq/L Potassium 5.9 H (3.5-5.1) mEq/L Chloride 109 H (98-107) mEq/L Carbon Dioxide 16 L (21-32) mEq/L Anion Gap 21.9 H (5-15) BUN 16 (7-18) mg/dL Creatinine 0.9 (0.55-1.02) mg/dL Est Cr Clr Drug Dosing 39.55 mL/min Estimated GFR (MDRD) 60 (>60) mL/min BUN/Creatinine Ratio 17.8 (14-18) Glucose 78 L (83-115) mg/dL Calcium 12.8 H (8.5-10.1) mg/dL Magnesium 1.4 L (1.8-2.4) mg/dl Med Orders - Current: Current Medications Acetaminophen (Tylenol) 650 mg PO Q4H PRN PRN Reason: Pain (Mild 1-3)/fever Last Admin: 09/18/17 21:06 Dose: 650 mg Albuterol/Ipratropium (Duoneb 3.0-0.5 Mg/3 Ml) 3 ml NEB Q4H PRN PRN Reason: Shortness Of Breath/wheezing Bisacodyl (Dulcolax) 5 mg PO DAILY PRN PRN Reason: Constipation Bumetanide (Bumex) 0.5 mg IVPUSH [facility]TIC [facility] Last Admin: 09/20/17 06:13 Dose: 0.5 mg Docusate Sodium (Colace) 100 mg PO BID PRN PRN Reason: Constipation Dronabinol (Marinol) 2.5 mg PO TIDAC [facility] Last Admin: 09/20/17 11:50 Dose: Not Given Hydralazine HCl (Apresoline) 10 mg IVPUSH Q4H PRN PRN Reason: Hypertension Hydromorphone HCl (Dilaudid) 0.5 mg PO Q4H PRN PRN Reason: Pain Hydromorphone HCl (Dilaudid) 0.5 mg IVPUSH Q2H PRN PRN Reason: Pain (severe 7-10) Last Admin: 09/19/17 00:20 Dose: 0.5 mg Promethazine HCl 6.25 mg/ (Sodium Chloride) 50.25 mls @ 100 mls/hr IV Q6H PRN PRN Reason: Nausea/Vomiting Lorazepam (Ativan) 2 mg IVPUSH Q4H PRN PRN Reason: Seizures Lorazepam (Ativan) 0.5 mg IV Q6H PRN PRN Reason: Anxiety Magnesium Sulfate (Pharmacy To Dose - Magnesium Replacement) 1 dose .XX ASDIRECTED [facility] Metoprolol Tartrate (Lopressor) 5 mg IVPUSH Q4H PRN PRN Reason: Tachycardia Ondansetron HCl (Zofran) 4 mg IV Q6H PRN PRN Reason: Nausea/Vomiting Last Admin: 09/19/17 11:58 Dose: 4 mg Oxycodone HCl (Oxycodone) 5 mg PO Q4H PRN PRN Reason: Pain (moderate 4-6) Polyethylene Glycol (Miralax) 17 gm PO DAILY PRN PRN Reason: Constipation Potassium Chloride (Pharmacy To Dose - Potassium Replacement) 1 dose .XX [facility]IRECTED [facility] Senna/Docusate Sodium (Senna Plus) 1 tab PO BID PRN PRN Reason: Constipation Zolpidem Tartrate (Ambien) 5 mg PO BEDTIME PRN PRN Reason: Sleep Discontinued Medications Bumetanide (Bumex) 0.5 mg IVPUSH ONETIME ONE Stop: 09/18/17 13:32 Last Admin: 09/18/17 13:49 Dose: 0.5 mg Bumetanide (Bumex) 0.5 mg IVPUSH BID [facility] Hydromorphone HCl (Dilaudid) 0.5 mg IVPUSH ONETIME ONE Stop: 09/18/17 02:33 Last Admin: 09/18/17 02:38 Dose: 0.5 mg Sodium Chloride (Normal Saline) 1,000 mls @ 250 mls/hr IV ASDIRECTED [facility] Last Admin: 09/18/17 01:23 Dose: 250 mls/hr Potassium Chloride/Sodium Chloride (Normal Saline With 40 Meq Kcl) 1,000 mls @ 250 mls/hr IV ASDIRECTED [facility] Last Admin: 09/20/17 06:16 Dose: 250 mls/hr Potassium Chloride/Sodium Chloride (Normal Saline With 40 Meq Kcl) 1,000 mls @ 25 mls/hr IV ASDIRECTED [facility] Sodium Chloride (Normal Saline) 500 mls @ 999 mls/hr IV .BOLUS ONE Stop: 09/18/17 11:46 Last Admin: 09/18/17 11:31 Dose: 999 mls/hr Zoledronic Acid 4 mg/ Sodium (Chloride) 105 mls @ 210 mls/hr IV ONETIME ONE Stop: 09/19/17 09:29 Last Admin: 09/19/17 09:11 Dose: 210 mls/hr Magnesium Sulfate 2 gm/ Premix 50 mls @ 25 mls/hr IV ONETIME ONE Stop: 09/20/17 10:59 Last Admin: 09/20/17 09:14 Dose: 25 mls/hr Magnesium Oxide (Magnesium Oxide) 400 mg PO ONETIME ONE Stop: 09/18/17 12:31 Last Admin: 09/18/17 13:02 Dose: 400 mg Magnesium Oxide (Magnesium Oxide) 800 mg PO ONETIME ONE Stop: 09/19/17 08:01 Last Admin: 09/19/17 09:11 Dose: 800 mg Potassium Chloride (Klor-Con M20) 40 meq PO Q4H DENISA Stop: 09/18/17 17:01 Last Admin: 09/18/17 16:30 Dose: 40 meq - Exam General: Reports: Alert, Cooperative, No Acute Distress, Other (Thin) HEENT: Reports: Pupils Equal, Pupils Reactive. Denies: Mucous Membr. Moist/[place] Neck: Reports: Supple, Trachea Midline Lungs: Reports: Normal Respiratory Effort, Decreased Breath Sounds. Denies: Crackles, Rales Cardiovascular: Reports: Regular Rate, Regular Rhythm, No Murmurs GI/Abdominal Exam: Normal Bowel Sounds, Soft, Non-Tender, No Distention (Female) Exam: Deferred Rectal (Female) Exam: Deferred Extremities: Normal Inspection, Normal Range of Motion, Non-Tender, No Pedal Edema Skin: Reports: Warm, Dry, Intact Neurological: Reports: No New Focal Deficit, Other (Limited exam with cognitive status ) Psy/Mental Status: Reports: Alert, Normal Affect. Denies: Anxious <Saran Moreno - Last Filed: 09/20/17 14:24> Discharge Summary - Discharge Diagnosis/Problem(s) (1) Metastatic cancer SNOMED Code(s): 378024158 ICD Code: C79.9 - SECONDARY MALIGNANT NEOPLASM OF UNSPECIFIED SITE Status: Acute Problem Details: - Pelvic and Facial Bones (2) Cancer of thymus SNOMED Code(s): 372067696 ICD Code: C37 - MALIGNANT NEOPLASM OF THYMUS Status: Acute (3) Generalized weakness SNOMED Code(s): 67891688 ICD Code: R53.1 - WEAKNESS Status: Acute (4) Weight loss, non-intentional SNOMED Code(s): 647765426 ICD Code: R63.4 - ABNORMAL WEIGHT LOSS Status: Acute (5) Poor appetite SNOMED Code(s): 42426529 ICD Code: R63.0 - ANOREXIA Status: Acute (6) Encephalopathy, metabolic SNOMED Code(s): 72844854 ICD Code: G93.41 - METABOLIC ENCEPHALOPATHY Status: Acute (7) End of life care SNOMED Code(s): 901637570, 373334754 ICD Code: Z51.5 - ENCOUNTER FOR PALLIATIVE CARE Status: Acute (8) Dehydration SNOMED Code(s): 86179503 ICD Code: E86.0 - DEHYDRATION Status: Acute (9) Hypercalcemia of malignancy SNOMED Code(s): 51261615 ICD Code: E83.52 - HYPERCALCEMIA Status: Acute - Patient Summary/Data Consults: Consultations 09/18/17 11:26 Consult to Case Management [CONS] Routine Consult to Judge'S Clerk [CONS] Routine Consult to Financial Associate [CONS] Routine Consult to Spiritual Care [CONS] Routine 09/19/17 10:20 Consult to Occupational Therapy [OT Evaluation and Treatment] [CONS] Routine Consult to Physical Therapy [PT Evaluation and Treatment] [CONS] Routine 09/19/17 13:33 Consult to Hospice [CONS] Routine Consult to Palliative Care [CONS] Routine Hospital Course: The patient was seen and examined at bedside in concert with the PA student. The discharge assessment and plans were discussed and agreed upon with me - Patient Data Vitals - Most Recent: Last Vital Signs Temp 36.7 C 09/20/17 11:55 Pulse 63 09/20/17 11:55 Resp 14 09/20/17 11:55 BP 137/45 L 09/20/17 11:55 Pulse Ox 94 L 09/20/17 11:55 I&O - Last 24 hours: Intake & Output 09/19/17 09/20/17 09/20/17 22:59 06:59 14:59 Intake Total 4410 3382 800 Output Total 3475 1250 1900 Balance 935 2132 -1100 Lab Results - Last 24 hrs: Laboratory Results - last 24 hr 09/20/17 Range/Units 06:04 Sodium 141 (136-145) mEq/L Potassium 5.9 H (3.5-5.1) mEq/L Chloride 109 H (98-107) mEq/L Carbon Dioxide 16 L (21-32) mEq/L Anion Gap 21.9 H (5-15) BUN 16 (7-18) mg/dL Creatinine 0.9 (0.55-1.02) mg/dL Est Cr Clr Drug Dosing 39.55 mL/min Estimated GFR (MDRD) 60 (>60) mL/min BUN/Creatinine Ratio 17.8 (14-18) Glucose 78 L (83-115) mg/dL Calcium 12.8 H (8.5-10.1) mg/dL Magnesium 1.4 L (1.8-2.4) mg/dl Med Orders - Current: Current Medications Discontinued Medications Acetaminophen (Tylenol) 650 mg PO Q4H PRN PRN Reason: Pain (Mild 1-3)/fever Last Admin: 09/18/17 21:06 Dose: 650 mg Albuterol/Ipratropium (Duoneb 3.0-0.5 Mg/3 Ml) 3 ml NEB Q4H PRN PRN Reason: Shortness Of Breath/wheezing Bisacodyl (Dulcolax) 5 mg PO DAILY PRN PRN Reason: Constipation Bumetanide (Bumex) 0.5 mg IVPUSH ONETIME ONE Stop: 09/18/17 13:32 Last Admin: 09/18/17 13:49 Dose: 0.5 mg Bumetanide (Bumex) 0.5 mg IVPUSH BID DENISA Bumetanide (Bumex) 0.5 mg IVPUSH BIDDIURETIC DENISA Last Admin: 09/20/17 06:13 Dose: 0.5 mg Docusate Sodium (Colace) 100 mg PO BID PRN PRN Reason: Constipation Dronabinol (Marinol) 2.5 mg PO TIDAC DENISA Last Admin: 09/20/17 11:50 Dose: Not Given Hydralazine HCl (Apresoline) 10 mg IVPUSH Q4H PRN PRN Reason: Hypertension Hydromorphone HCl (Dilaudid) 0.5 mg IVPUSH ONETIME ONE Stop: 09/18/17 02:33 Last Admin: 09/18/17 02:38 Dose: 0.5 mg Hydromorphone HCl (Dilaudid) 0.5 mg PO Q4H PRN PRN Reason: Pain Hydromorphone HCl (Dilaudid) 0.5 mg IVPUSH Q2H PRN PRN Reason: Pain (severe 7-10) Last Admin: 09/19/17 00:20 Dose: 0.5 mg Sodium Chloride (Normal Saline) 1,000 mls @ 250 mls/hr IV ASDIRECTED [facility] Last Admin: 09/18/17 01:23 Dose: 250 mls/hr Potassium Chloride/Sodium Chloride (Normal Saline With 40 Meq Kcl) 1,000 mls @ 250 mls/hr IV ASDIRECTED [facility] Last Admin: 09/20/17 06:16 Dose: 250 mls/hr Potassium Chloride/Sodium Chloride (Normal Saline With 40 Meq Kcl) 1,000 mls @ 25 mls/hr IV ASDIRECTED [facility] Sodium Chloride (Normal Saline) 500 mls @ 999 mls/hr IV .BOLUS ONE Stop: 09/18/17 11:46 Last Admin: 09/18/17 11:31 Dose: 999 mls/hr Promethazine HCl 6.25 mg/ (Sodium Chloride) 50.25 mls @ 100 mls/hr IV Q6H PRN PRN Reason: Nausea/Vomiting Zoledronic Acid 4 mg/ Sodium (Chloride) 105 mls @ 210 mls/hr IV ONETIME ONE Stop: 09/19/17 09:29 Last Admin: 09/19/17 09:11 Dose: 210 mls/hr Magnesium Sulfate 2 gm/ Premix 50 mls @ 25 mls/hr IV ONETIME ONE Stop: 09/20/17 10:59 Last Admin: 09/20/17 09:14 Dose: 25 mls/hr Lorazepam (Ativan) 2 mg IVPUSH Q4H PRN PRN Reason: Seizures Lorazepam (Ativan) 0.5 mg IV Q6H PRN PRN Reason: Anxiety Magnesium Oxide (Magnesium Oxide) 400 mg PO ONETIME ONE Stop: 09/18/17 12:31 Last Admin: 09/18/17 13:02 Dose: 400 mg Magnesium Oxide (Magnesium Oxide) 800 mg PO ONETIME ONE Stop: 09/19/17 08:01 Last Admin: 09/19/17 09:11 Dose: 800 mg Magnesium Sulfate (Pharmacy To Dose - Magnesium Replacement) 1 dose .XX [facility] Metoprolol Tartrate (Lopressor) 5 mg IVPUSH Q4H PRN PRN Reason: Tachycardia Ondansetron HCl (Zofran) 4 mg IV Q6H PRN PRN Reason: Nausea/Vomiting Last Admin: 09/19/17 11:58 Dose: 4 mg Oxycodone HCl (Oxycodone) 5 mg PO Q4H PRN PRN Reason: Pain (moderate 4-6) Polyethylene Glycol (Miralax) 17 gm PO DAILY PRN PRN Reason: Constipation Potassium Chloride (Pharmacy To Dose - Potassium Replacement) 1 dose .XX [facility]IRECTED [facility] Potassium Chloride (Klor-Con M20) 40 meq PO Q4H [facility] Stop: 09/18/17 17:01 Last Admin: 09/18/17 16:30 Dose: 40 meq Senna/Docusate Sodium (Senna Plus) 1 tab PO BID PRN PRN Reason: Constipation Zolpidem Tartrate (Ambien) 5 mg PO BEDTIME PRN PRN Reason: Sleep
== END 2017-09-20 12:40 | disposition home or self-care (01) | DRG 640 ==
LOC: JD.ED 00:51 → SUPCPDRO 00:51 → JD.MS 03:48 → OBSVTOIN 11:42
PROVIDERS: ADMIT Internal Medicine; ATTEND Internal Medicine
DX: E83.52 Hypercalcemia (principal); G93.41 Metabolic encephalopathy; C41.4 Malignant neoplasm of pelvic bones, sacrum and coccyx; R63.0 Anorexia; R64 Cachexia; Z68.1 Body mass index [BMI] 19.9 or less, adult; C79.51 Secondary malignant neoplasm of bone; E86.0 Dehydration; E87.6 Hypokalemia; S01.21XA Laceration without foreign body of nose, initial encounter; S20.311A Abrasion of right front wall of thorax, initial encounter; W06.XXXA Fall from bed, initial encounter; M19.90 Unspecified osteoarthritis, unspecified site; G89.29 Other chronic pain; M54.9 Dorsalgia, unspecified; F32.9 Major depressive disorder, single episode, unspecified; I25.10 Atherosclerotic heart disease of native coronary artery without angina pectoris; I70.0 Atherosclerosis of aorta; M85.80 Other specified disorders of bone density and structure, unspecified site; Z85.038 Personal history of other malignant neoplasm of large intestine; R62.7 Adult failure to thrive; K46.9 Unspecified abdominal hernia without obstruction or gangrene; K44.9 Diaphragmatic hernia without obstruction or gangrene; R53.83 Other fatigue; Z85.048 Personal history of other malignant neoplasm of rectum, rectosigmoid junction, and anus; R53.1 Weakness; Z66 Do not resuscitate; Z88.6 Allergy status to analgesic agent; Z88.0 Allergy status to penicillin; Z88.2 Allergy status to sulfonamides; Z88.8 Allergy status to other drugs, medicaments and biological substances; Z85.528 Personal history of other malignant neoplasm of kidney; Z90.49 Acquired absence of other specified parts of digestive tract; Z90.5 Acquired absence of kidney; Z90.710 Acquired absence of both cervix and uterus
CPT/HCPCS: 36415; 70450; 70486; 72100; 72125; 72170; 72220; 80053 ×2; 81001; 82330; 82652; 83735 ×2; 83970; 85025; 86140; 96361; 96374; 99285; J1170; J3480 ×2; J7040 ×2; 71046; 71046-26; 72040; 72040-26; 73060-26-LT; 73060-26-RT; 73060-LT; 73060-RT; 73070-26-LT; 73070-26-RT; 73070-LT; 73070-RT; 73552-50; 735525026; 73562-26-LT; 73562-26-RT; 73562-LT; 73562-RT; 80048; 93005; 97116-GP; 97162-GP; 97530-GP; A9270-GY; G0378; J2405; J3475; J3489; J3490; J7030; Q0167